=== PATIENT | female | born 1940 | race Caucasian/White ===

== ENCOUNTER → 2019-01-22 12:28 | Outpatient (CLI) | payer MEDICARE, OTHER, SELFPAY ==
--- NOTE | 2019-01-22 | DI.RAD.S_ITS ---
PROCEDURE: FL BARIUM SWALLOW INDICATIONS: Other dysphagia COMPARISON: None. FINDINGS: Function: There is decreased esophageal peristalsis. No elicited gastroesophageal reflux. There is normal transit of a calibrated barium tablet through the esophagus into the stomach. Morphology: Air-contrast images demonstrate normal mucosal morphology. Single contrast views show no esophageal strictures, extrinsic mass effects, or diverticula. Limited images of the stomach demonstrate normal appearance. IMPRESSION: Mild esophageal dysmotility. Dictated by: Edvin Quinonez M.D. on 01/22/2019 at 15:40 Approved by: Edvin Quinonez M.D. on 01/22/2019 at 15:42
== END ==
PROVIDERS: PCP Nurse Practitioner Primary Care; Visit Provider Otolaryngology
DX: R13.19 Other dysphagia (principal); K22.4 Dyskinesia of esophagus
CPT/HCPCS: 74220

== ENCOUNTER 2019-03-21 11:22 | Day surgery (SDC) | payer MEDICARE, OTHER, SELFPAY ==
--- NOTE | 2019-03-21 | PATH_ITS ---
[facility] Accession Number: [id number] . 01 Material submitted: . esophagus - ESOPHAGEAL BIOPSIES . 01 Clinical history: . EGD W/POSS BX . 02 Diagnosis: Esophagus, Biopsy: Columnar mucosa with no diagnostic abnormality. Negative for intestinal metaplasia. Negative for dysplasia and malignancy. [facility] 03/23/2019 1140 Local . 02 Electronically signed: . Laurence Segal MD, Pathologist NPI- [id number] . 01 Gross description: . ESOPHAGEAL BIOPSIES: Received in formalin are 2 fragment(s) of cabrera, soft tissue measuring 0.1 x 0.1 x 0.1 cm to 0.3 x 0.2 x 0.2 cm submitted entirely in 1 cassette(s) /[facility] 03/21/2019 2226 Local . 02 Microscopic: . An ABPAS stain was performed to evaulate for intestinal metaplasia and is negative. The control stain showed appropriate reactivity. . 02 Pathologist provided ICD-10: R13.14 . 02 CPT . 130210, [id number] Performed at: 01 [facility] [address], [place], [place] [id number] MD Jagdeep Zabala MD Phone: [phone] Performed at: 02 [facility] [address] [place], [place] [id number] MD Laurence Segal MD Phone: [phone]
--- NOTE | 2019-03-21 08:27 | PM.HP.1 ---
History of Present Illness History of Present Illness Date Patient Seen: 03/21/19 Chief complaint: [id number] EGD W/POSS BX Narrative: Patient is an 79-year-old female who presented today for EGD. She was last seen in the office on February 20, 2019 for sore throat and chronic cough. She also described esophageal dysphagia. She did have an esophagram on January 22, 2019 which did show some esophageal dysmotility with decreased esophageal peristalsis but no evidence of mass or lesion. Meds Home Medications and Allergies Home Medications Medication Instructions Recorded Confirmed Type Qvar 2 puff INH BID #0 06/23/16 03/21/19 History albuterol sulfate [Proventil HFA] 1 puff INH PRN PRN #0 06/23/16 03/21/19 History ascorbic acid (vitamin C) 1,000 mg PO BID #0 06/23/16 03/21/19 History calcium carbonate 600 mg PO BID #0 06/23/16 03/21/19 History cholecalciferol (vitamin D3) 1 tab PO BID #0 06/23/16 03/21/19 History [Vitamin D3] fluticasone propionate 2 spray INTRANASAL HS #0 06/23/16 03/21/19 History Refresh Tears 1 drp OPHTH TIDP PRN #0 06/28/16 03/21/19 History cyclosporine [Restasis] 1 drp OPHTHALMIC (EYE) BID 03/21/19 03/21/19 History Allergies Allergy/AdvReac Type Severity Reaction Status Date / Time No Known Drug Allergies Allergy Verified 03/21/19 12:15 Review of Systems Review of Systems ROS Unobtainable: All systems reviewed & are unremarkable except as noted in HPI and below Exam Const General: cooperative, healthy appearing, comfortable and well developed Orientation: alert, awake and oriented x3 Resp Effort & Inspection: normal respiratory effort and able to speak in complete sentences Auscultation: clear to auscultation bilaterally Cardio Rate: regular rate Rhythm: regular rhythm Heart Sounds: S1 normal and S2 normal GI Palpation: soft and No tender Auscultation: normal bowel sounds Extrem Right lower extremity: no edema Left lower extremity: no edema Assessment & Plan Assessment & Plan narrative: 1. Chronic cough 2. Esophageal dysphagia - abnormal esophagram, dysmotility - EGD today, further recommendations to follow
[2019-03-21 12:21] VITALS: BP 143/86; PULSE 108; RESP 15; TEMP 36; O2SAT 97; BMI 25.9
[2019-03-21] MEDS: SODIUM CHLORIDE 0.9% 1,000 ML 70 ML IV (12:46)
[2019-03-21] MEDS: LIDOCAINE 4% SOLN 50 ML 20 ML TOP (13:23)
[2019-03-21] MEDS: fentaNYL 250 MCG/5 ML INJ IV (13:37)
[2019-03-21] MEDS: MIDAZOLAM 5 MG/5 ML VIAL IV (13:37)
--- NOTE | 2019-03-21 13:39 | P.OP.ENDO_ITS ---
Operative Date/Time/Diagnoses Date of procedure: 03/21/19 Time of procedure: 13:27 Procedure Notes Procedure in detail: Surgeon: Ros Dodson DO Procedure: Esophagogastroduodenoscopy with biopsy Preoperative diagnosis: 1. Esophageal dysphagia 2. Abnormal esophagram with dysmotility 3. Chronic cough Postoperative diagnosis: 1. LA-D esophagitis in the lower esophagus -biopsied 2. Medium-sized hiatal hernia 3. Normal appearing gastric mucosa and duodenum Medications: Conscious sedation using 2 mg IV of Midazolam and 50 mcg IV of Fentanyl Preanesthesia Assessment An H and P was performed/updated and the Px?s ASA class is 2. The procedure was discussed in detail with the patient. The potential risks and complications including infection, bleeding, missed lesions, perforation, need for surgery in case of perforation, prolonged hospital stay, and were explained. A brief question and answer period was allotted and once all questions were answered, informed consent was obtained. The patient was brought back to the procedure room and placed on standard monitoring. The patient?s vital signs were monitored continuously throughout the entire procedure. Prior to starting, a timeout was performed to confirm the patient?s identity, allergies, medications, and procedure. Procedure in detail The patient was placed in left lateral decubitus position and a bite block was inserted. The tip of the upper endoscope was placed into the mouth and advanced without difficulty under direct visualization into the esophagus. Esophagus: LA-D esophagitis noted in the lower 3rd of the esophagus Mildly tortuous lower 3rd of the esophagus Stomach: Medium-sized hiatal hernia Otherwise unremarkable gastric mucosa Duodenum: Normal appearing small bowel mucosa The patient tolerated the procedure well and will be brought back to the [facility] to be discharged once criteria are met. The total physician intraservice time was 7min. Complications There were no complications and estimated blood loss was minimal. Recommendations: Resume previous diet Continue outPx medications Follow up pathology results Consider repeat EGD to assess for healing in 8-12 weeks Recommend omeprazole 20 mg twice daily for 8 weeks Continue Carafate to 4 times daily Office follow up in 6-8 weeks An emergency contact number was given to the patient for any complications related to the procedure
[2019-03-21 13:42] VITALS: BP 99/46; PULSE 77; RESP 17; TEMP 36.4; O2SAT 92
[2019-03-21 13:46] VITALS: BP 95/57; PULSE 81; RESP 18; O2SAT 92
[2019-03-21 13:57] VITALS: BP 111/69; PULSE 81; RESP 17; O2SAT 96
[2019-03-21 14:02] VITALS: BP 124/56; PULSE 87; RESP 19; TEMP 36.4; O2SAT 98
--- NOTE | 2019-03-21 14:13 | SUR.PHASEI ---
Post op endo PACU note: patient arrived to PACU awake but drowsy. VSS, O2 Sat 92. 2L/[employer] placed on arrival. Sitting up, tolerating po without nausea. occasional coughing when drank water. Coughing resolved. Stable for transfer to [facility]. handoff report given to Mata Savage RN
[2019-03-21 14:29] VITALS: BP 138/79; PULSE 86; RESP 15; TEMP 36.6; O2SAT 98
== END 2019-03-21 14:15 | disposition home or self-care (01) ==
PROVIDERS: PCP Nurse Practitioner Primary Care; Visit Provider Student in an Organized Health Care Education/Training Program
PROC: 0DJ08ZZ Inspection of Upper Intestinal Tract, Via Natural or Artificial Opening Endoscopic (ICD-10-PCS; CPT 43235; principal; 2019-03-21 12:30)
DX: K20.9 Esophagitis, unspecified (principal); K44.9 Diaphragmatic hernia without obstruction or gangrene
CPT/HCPCS: 43239; J2250; J3010

== ENCOUNTER → 2021-07-27 09:50 | Outpatient (CLI) | payer MEDICARE, OTHER, SELFPAY ==
[2021-07-27 11:15] LABS: Add Manual Diff / Slide Review NO; Basophils Absolute Auto 0 /uL (0-100); Eosinophils Absolute Auto 100 /uL (0-450); Eosinophils Percent Auto 2.3 % (2-4); Hematocrit 39.7 % (36-46); Hemoglobin 13.4 g/dL (12.0-16.0); Lymphocytes Absolute Auto 1000 /uL (1100-4500); Lymphocytes Percent Auto 24.6 % (25-40); Mean Corpuscular HGB Conc 33.8 % (30-36); Mean Corpuscular Hemoglobin 32.4 PG (26-34); Monocytes Absolute Auto 300 /uL (0-900); Monocytes Percent Auto 8.1 % (3-14); Neutrophils Absolute Auto 2500 /uL (1500-7000); Platelet Count 159 X10^3/uL (150-400); Red Blood Cell Count 4.13 X10^6/uL (4.0-5.2); Red Cell Distribution Width 14.1 % (11.6-14.8)
[2021-07-27 11:55] LABS: Creatine Kinase 63 U/L (30-135)
[2021-07-27 12:01] LABS: Alanine Aminotransferase 23 IU/L (<35); Albumin 4.4 g/dL (3.5-5.0); Albumin Globulin Ratio 1.6 (1.0-2.8); Alkaline Phosphatase 60 U/L (38-126); Aspartate Aminotransferase 29 IU/L (14-36); BUN Creatinine Ratio 19.7 (6-22); Blood Urea Nitrogen 13 mg/dL (7-17); Calcium 9.1 mg/dL (8.4-10.2); Carbon Dioxide 25 mmol/L (22-32); Chloride 103 mmol/L (98-107); Cholesterol 225 mg/dL (140-199); Estimated Glomerular Filt Rate > 60.0 mL/min (>60); Globulin 2.8 g/dL (1.7-4.1); Glucose 97 mg/dL (80-110); HDL Cholesterol 56 mg/dL (40-60); HEMOLYSIS < 15 (0-50); LDL Cholesterol Calculated 143 mg/dL (<100); Potassium 4.3 mmol/L (3.4-5.1); Sodium 134 mmol/L (137-145); Total Protein 7.2 g/dL (6.3-8.2); Triglycerides 129 mg/dL (35-150)
[2021-07-27 12:07] LABS: Troponin I < 0.012 ng/mL (0.01-0.034)
[2021-07-27 12:56] LABS: Free T3, Triiodothyronine Free 2.88 pg/mL (2.77-5.27); Free T4, Direct Thyroxine 1.56 ng/dL (0.78-2.19)
[2021-07-27 13:10] LABS: Thyroid Stimulating Hormone 1.67 uIU/mL (0.47-4.68)
== END ==
PROVIDERS: PCP Family Medicine; Referring Provider Family Medicine; Visit Provider Family Medicine
DX: I10 Essential (primary) hypertension (principal); I44.7 Left bundle-branch block, unspecified; R00.0 Tachycardia, unspecified; R94.31 Abnormal electrocardiogram [ECG] [EKG]; R53.83 Other fatigue; Z13.6 Encounter for screening for cardiovascular disorders
CPT/HCPCS: 36415; 80053; 80061; 82550; 84439; 84443; 84481; 84484; 85025

== ENCOUNTER → 2021-08-06 15:22 | Outpatient (CLI) | payer MEDICARE, OTHER, SELFPAY ==
--- NOTE | 2021-08-18 14:43 | PM.CARDMON.1 ---
Health Care Attorney Report Referral & Results Date Patient Seen: 08/06/21 Requesting provider: Reji Vega Indication: Hypertension Duration of monitoring (days): 7 Diary information: There are no patient events to review Data: Minimum heart rate identified was 52 beats per minute at 04:17 on 08/10/2021 Maximum sinus heart rate was 102 beats per minute at 19:23 on August 10, 2021 Maximum overall heart rate was 169 beats per minute at 23:13 on 08/08/2021 during a run of SVT Approximately 2.1% of identified beats were supraventricular ectopic in origin which would classify them as occasional Approximately 8.8% of identified beats were ventricular ectopic in origin which would classify them as frequent this included a 1 minute 19 second run of ventricular bigeminy and a 7 minute 55 second run of ventricular trigeminy There were 96 runs of SVT the fastest being 8 beat run at the above rate of 169 beats per minute, the longest lasting 22.8 seconds at a rate of 113 beats per minute which suggest possible atrial tachycardia rather than true SVT There were no pauses of 3.0 seconds or longer or episodes of atrial fibrillation identified on this study Impression: 7 day radiation monitor demonstrating occasional PACs frequent PVCs and rare very brief runs of SVT as above Clinical correlation suggested
== END ==
PROVIDERS: Family Provider Family Medicine; PCP Family Medicine; Referring Provider Family Medicine; Visit Provider Family Medicine
DX: I10 Essential (primary) hypertension (principal); I44.7 Left bundle-branch block, unspecified; R00.0 Tachycardia, unspecified; R94.31 Abnormal electrocardiogram [ECG] [EKG]
CPT/HCPCS: 93242; 93244

== ENCOUNTER → 2021-09-25 09:46 | Outpatient (CLI) | payer MEDICARE, OTHER, SELFPAY ==
--- NOTE | 2021-09-25 | DI.NM.S_ITS ---
PROCEDURE: NM SERG PERF SPECT R&S PHARM Rest and pharmacological stress myocardial perfusion SPECT with gated imaging and ejection fraction RADIOPHARMACEUTICAL: 11.4 mCi Tc-99m tetrafosmin IV at rest and 25.2 mCi Tc-99m tetrafosmin IV at peak effect of pharmacological stress. [id number] was performed. INDICATIONS: Abnormal electrocardiogram [ECG] [EKG] TECHNIQUE: Radiopharmaceutical was injected at peak stress test, and also at rest. SPECT images were obtained. SPECT myocardial perfusion images were displayed in short axis, horizontal long axis, and vertical long axis views. Gated images were reviewed using [email or web address] software. COMPARISON: None. CARDIAC STRESS: A pharmacologic stress test was performed under the supervision of an attending staff, using an infusion of regadenoson. Hemodynamic data: There is normal blood pressure and heart rate response to pharmacologic stress. Symptoms: The patient denied anginal chest pain. EKG: Sinus rhythm, IVCD, no diagnostic changes of ischemia; frequent PVCs. FINDINGS: Raw data: There is good myocardial uptake of radiotracer. No significant motion artifacts. Ftjn-mg-mehna ratio is 0.31 (normal is less than 0.38 for tetrafosmin tracer). Left ventricle function: Gated images demonstrate normal left ventricular wall thickening. No segmental wall motion abnormalities. No transient ischemic dilation; TID is 0.84 (normal less than 1.3). Left ventricle resting end diastolic volume is 163 mL. Left ventricle stress ejection fraction is 54%; normal range is above 45%. Myocardial perfusion: There is a medium size, mild intensity fixed distal anteroseptal and anteroapical wall defect which demonstrates slightly improvement but not complete resolution in the prone images. There is evidence of dyssynchrony in the left ventricle on gated imaging. IMPRESSION: Fixed distal anteroseptal and anteroapical wall defects demonstrate slight improvement but not complete resolution in prone imaging when compared to rest and supine imaging. Along with the dyssynchrony of the left ventricle, this abnormality is likely related to interventricular conduction delay rather than true ischemia however this cannot be completely ruled out. Dictated by: Apple Mayo D.O. on 09/25/2021 at 17:19 Approved by: Apple Mayo D.O. on 09/25/2021 at 17:25
--- NOTE | 2021-09-25 15:29 | PM.TREADMILL ---
Cardiac Stress Test Report Referral & Results Date Patient Seen: 09/25/21 Time Patient Seen: 15:29 Requesting provider: Apple Mayo Indication: Abnormal ECG Rest ECG: Sinus rhythm with bigeminy and intraventricular conduction delay Procedure Note: After Lexiscan injection had minimal dyspnea, no chest discomfort No significant ST changes after Lexiscan injection Impression: Normal Lexiscan stress test Nuclear images pending Please note: Actual ECG tracings can be found in the PACS system.
== END ==
PROVIDERS: Family Provider Family Medicine; PCP Family Medicine; Referring Provider Internal Medicine Cardiovascular Disease; Visit Provider Internal Medicine Cardiovascular Disease
DX: R94.31 Abnormal electrocardiogram [ECG] [EKG] (principal)
CPT/HCPCS: 78452; 93017; A9502; J2785

== ENCOUNTER → 2021-10-20 15:36 | Outpatient (CLI) | payer MEDICARE, OTHER, SELFPAY ==
--- NOTE | 2021-10-20 | DI.MRI.S_ITS ---
PROCEDURE: MR HEAD/BRAIN WO/W CON INDICATIONS: Other localized visual field defect, - ORBIT PROTOCOL TECHNIQUE: Noncontrast axial T1 spin echo, axial T2 fast spin echo, sagittal and axial FLAIR, coronal T2 fast spin echo, axial gradient echo, axial diffusion and ADC through the brain and thin section, high-resolution coronal STIR and axial T1 with fat sat images obtained through the orbits. After the administration of contrast, axial and coronal and sagittal 3D VIBE or T1 spin echo with fat saturation through the brain and thin section, high-resolution axial and coronal T1 images with fat sat obtained through the orbits.. COMPARISON: None. FINDINGS: Image quality: Excellent. CSF Spaces: Basal cisterns are patent. No extra-axial fluid collections. Ventricles are normal in size and shape. Brain: No midline shift. No intracranial bleeds or masses. No abnormal intracranial enhancement. There is mild, diffuse cerebral volume loss. There are minimal periventricular and subcortical white matter chronic microvascular ischemic changes. The brainstem appears normal. Diffusion-weighted images demonstrate no acute ischemic insults. Small chronic infarct noted in the medial aspect of the right occipital lobe.. Normal intravascular flow voids are present. Skull and face: Calvarial marrow is normal in signal. Postsurgical changes noted in the left globe. The left globe is atrophied. Postsurgical changes compatible prior cataract surgery noted in the right globe. Right globe otherwise has a normal appearance. Left optic nerve is atrophy. Right optic nerve is normal in appearance. Bilateral extraocular muscles are normal. Sinuses: Sinuses and mastoids appear clear. IMPRESSION: 1. No acute intracranial disease process. 2. No areas of acute infarction. Small chronic right occipital lobe infarct is noted. 3. Postsurgical changes noted in the left eye with atrophy of the left optic nerve. Please correlate with clinical findings and clinical history. 4. Mild, diffuse cerebral volume loss. 5. Minimal periventricular and subcortical white matter chronic microvascular ischemic change. Dictated by: Emily Mccormick MD, PhD on 10/21/2021 at 17:39 Approved by: Emily Mccormick MD, PhD on 10/21/2021 at 17:45
== END ==
PROVIDERS: Family Provider Family Medicine; PCP Family Medicine; Referring Provider Ophthalmology; Visit Provider Ophthalmology
DX: H53.451 Other localized visual field defect, right eye (principal); I63.89 Other cerebral infarction
CPT/HCPCS: 70553; A9579

== ENCOUNTER → 2022-01-18 15:52 | Outpatient (CLI) | payer MEDICARE, OTHER, SELFPAY ==
--- NOTE | 2022-01-18 15:53 | DI.ECHO.S_ITS ---
[facility]---------+ [facility] +---------+ : : [address] [place] [address] : : : : [id number] : : : : Phone: [phone]---------+ Echocardiogram Report + + :Name: REE BOSCH Study Date: 01/18/2022 Height: 62 in : :[facility] ReadingLocation: Weight: 140 lb : : Gender: Female BSA: 1.6 m2 : :: 1940 Age: 81 yrs BP: 145/71 mmHg: :Reason For Study: Congestive Heart Failure : :Ordering Physician: CLOTILDE, : :NAOMI Performed By: Conrad Elkins : :Referring: NAOMI MABRY : + + Interpretation Summary There is mild concentric left ventricular hypertrophy. The ejection fraction is estimated to be 25-30%. There is severe global hypokinesis of the left ventricle. Diastolic function could not be accurately assessed due to unobtainable data. The right ventricle is normal in size and function. There is mild mitral regurgitation. There is mild aortic regurgitation. There is mild tricuspid regurgitation. The right ventricular systolic pressure is estimated to be at least 19 mmHg based on an estimated right atrial pressure of 3 mm Hg. Procedure: A two-dimensional transthoracic echocardiogram with color flow and Doppler was performed. The study quality was technically adequate. There is no prior echocardiogram noted for this patient. The patient had frequent PVCs during the exam. Left Ventricle: The left ventricle is normal in size. There is mild concentric left ventricular hypertrophy. Left ventricular systolic function is severely reduced. The ejection fraction is estimated to be 25-30%. There is severe global hypokinesis of the left ventricle. Diastolic function could not be accurately assessed due to unobtainable data. Right Ventricle: The right ventricle is normal in size and function. Atria: Both atria are normal in size. The interatrial septum grossly appears intact with no obvious evidence for an atrial septal defect. Mitral Valve: There is mild mitral annular calcification. There is mild mitral regurgitation. Aortic Valve: There is mild aortic valve sclerosis. There is no aortic valve stenosis. There is mild aortic regurgitation. Tricuspid Valve: The tricuspid valve is normal in structure and function. There is mild tricuspid regurgitation. The right ventricular systolic pressure is estimated to be at least 19 mmHg based on an estimated right atrial pressure of 3 mm Hg. Pulmonic Valve: The pulmonic valve is not well seen, but is grossly normal. There is no pulmonic valvular regurgitation. Great Vessels: The aortic root is normal size. The ascending aorta could not be visualized. The IVC is of normal diameter and collapses greater than 50% with a sniff. This suggests a low right atrial pressure of 3 mm Hg. Pericardium/ Pleura There is no pericardial effusion. There is no pleural effusion. MMode/2D Measurements & Calculations LVIDd: 5.4 cm LVOT diam: 1.8 cm LVIDs: 4.7 cm Ao root diam: 3.6 cm FS: 13.0 % IVSd: 1.4 cm LVPWd: 1.2 cm LV gallegos. diameter/BSA (cm/m^2): 3.3 LV sys. diameter/BSA (cm/m^2): 2.9 LA dimension: 3.1 cm RA long axis: 4.9 cm LA A2 area: 15.2 cm2 LA A4 area: 13.0 cm2 LA length (vol): 5.0 cm LA vol: 33.5 ml LA vol index: 20.4 ml/m2 LVLs ap4: 7.7 cm LVLd ap2: 7.9 cm LVLs ap2: 7.7 cm TAPSE_phl: 2.0 cm Doppler Measurements & Calculations Ao V2 max: 112.0 cm/sec LVOT Max Christian: 102.0 cm/sec Ao V2 mean: 81.2 cm/sec LV V1 max P.2 mmHg Ao max P.0 mmHg LV V1 VTI: 18.7 cm Ao mean P.0 mmHg JASON(I,D): 2.5 cm2 Ao V2 VTI: 18.8 cm JASON(V,D): 2.3 cm2 sev ratio: 0.99 JASNO indexed to BSA (cm^2/m^2): 1.5 TR max christian: 199.0 cm/sec SV(LVOT): 47.6 ml TR max P.8 mmHg AV VR_phl: 0.91 JASON(VTI)/BSA_phl: 1.5 Reading Physician:11:45 AM
== END ==
PROVIDERS: Family Provider Family Medicine; PCP Family Medicine; Referring Provider Internal Medicine Cardiovascular Disease; Visit Provider Internal Medicine Cardiovascular Disease
DX: I08.3 Combined rheumatic disorders of mitral, aortic and tricuspid valves (principal); I50.22 Chronic systolic (congestive) heart failure; I44.7 Left bundle-branch block, unspecified; R00.0 Tachycardia, unspecified; R94.31 Abnormal electrocardiogram [ECG] [EKG]
CPT/HCPCS: 93306

== ENCOUNTER 2022-02-18 12:03 | Emergency (ER) | payer MEDICARE, OTHER, SELFPAY ==
[2022-02-18] VITALS (10 sets, daily range): BP systolic 126–139; BP diastolic 63–70; PULSE 66–83; RESP 18–32; TEMP 36.9; O2SAT 96–98; BMI 25.2
--- NOTE | 2022-02-18 12:34 | DI.RAD.S_ITS ---
PROCEDURE: XR CHEST 2V INDICATIONS: SOB TECHNIQUE: 2 views of the chest were acquired. COMPARISON: None. FINDINGS: Surgical changes and devices: Bilateral shoulder arthroplasties. Lungs and pleura: Lungs are clear. No pleural effusions or pneumothorax. Mediastinum: Mediastinal contours are normal. Heart size is normal. Bones and chest wall: No suspicious bony abnormalities. Suspect T7 compression fracture. Scoliosis. Soft tissues appear unremarkable. Arterial vascular calcifications. IMPRESSION: No acute cardiopulmonary abnormality. Suspect T7 compression fracture. Dictated by: Johnathan Palmer M.D. on 02/18/2022 at 12:32 Approved by: Johnathan Palmer M.D. on 02/18/2022 at 12:35
--- NOTE | 2022-02-18 12:36 | ED_ITS ---
HPI - SOB/Dyspnea <Ephraim Santos PA-C - Last Filed: 02/18/22 18:47> General Chief Complaint: Shortness of Breath/Dyspnea Stated Complaint: Low BP that serena to high Time Seen by Provider: 02/18/22 12:18 Source: patient Mode of arrival: Ambulatory Limitations: no limitations History of Present Illness HPI Narrative: This is a 1-year-old female with a history of CHF presenting to the emergency department due to reported varying blood pressure readings on her home blood pressure cuff. She states that she initially took it with it being ?80 over something? which then increased to ?90 over something? and then eventually increasing to the ?100s?. Patient did not report any new concerning symptoms such as lightheadedness, dizziness, chest pain, or changes in vision. She did state that she was short of breath but states that she is chronic shortness of breath secondary to congestive heart failure. Patient is working with her primary care doctor and health technician to workup this. She denies any fevers, nausea, vomiting, or any other concerning signs or symptoms. States she is still able to take in fluids, but has not eaten a lot?. Related Data Home Medications Medication Instructions Recorded Confirmed ascorbic acid (vitamin C) 500 mg 1,000 mg PO BID ##0 06/23/16 02/18/22 tablet calcium carbonate 600 mg calcium 600 mg PO BID ##0 06/23/16 02/18/22 (1,500 mg) tablet cholecalciferol (vitamin D3) 50 1 tab PO BID ##0 06/23/16 02/18/22 mcg (2,000 unit) capsule (Vitamin D3) fluticasone propionate 50 2 spray intranasal HS ##0 06/23/16 02/18/22 mcg/actuation nasal spray,suspension carboxymethylcellulose sodium 0.5 1 drp OPHTH TIDP PRN Dry Eye(S) ##0 06/28/16 02/18/22 % eye drops (Refresh Tears) cyclosporine 0.05 % eye drops in a 1 drp ophthalmic (eye) BID 03/21/19 02/18/22 dropperette (Restasis) omega 3-tip-hfq-fish oil 1,000 mg 1 cap PO DAILY 07/23/21 02/18/22 (120 mg-180 mg) capsule (Fish Oil) spironolactone 25 mg tablet 12.5 mg PO DAILY 02/05/22 02/18/22 Previous Rx's Medication Instructions Recorded albuterol sulfate 90 mcg/actuation 1 puff inhalation PRN PRN 03/27/20 aerosol inhaler (Proventil HFA) Shortness Of Breath #6.7 grams metoprolol succinate 25 mg 25 mg PO DAILY #30 tabs 07/23/21 tablet,extended release 24 hr atorvastatin 10 mg tablet 10 mg PO BEDTIME #90 tabs 07/27/21 fluticasone 500 mcg-salmeterol 50 See Rx Instructions .Route 02/09/22 mcg/dose blistr powdr for .COMPLEX #60 blisters inhalation codeine 10 mg-guaifenesin 200 mg/5 10 ml PO Q4-6H PRN cough #473 mL 02/19/22 mL oral liquid Allergies Allergy/AdvReac Type Severity Reaction Status Date / Time No Known Drug Allergies Allergy Verified 02/18/22 12:19 Review of Systems <Ephraim Santos PA-C - Last Filed: 02/18/22 18:47> Review of Systems Narrative: GENERAL: Denies chills, fatigue, malaise, fever, sweats. HEENT: Denies sinus pain, ear pain, sore throat, difficulty swallowing, dizziness. RESPIRATORY: Denies dyspnea, cough, wheezing, hemoptysis, sputum. CARDIOVASCULAR: Denies chest pain, palpitations, orthopnea, edema, GASTROINTESTINAL: Denies nausea, vomiting, abdominal pain, diarrhea, constipation, melena. : Denies dysuria, frequency, incontinence, hematuria, urinary retention. MUSCULOSKELETAL: denies weakness, joint pain, or bony pain SKIN: Denies rash, skin lesions, or other NEUROLOGIC: Denies weakness, headache, numbness, change in speech, confusion, seizures, incoordination. PSYCHIATRIC: No concerning psychosocial issues. 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 Chronic cough Chronic right hip pain Dysphagia Food sticks on swallowing HTN (hypertension) LBBB (left bundle branch block) Left axis deviation Left low back pain Lumbar region somatic dysfunction Measles (~194) Memory problem Mumps Partial blindness (~1994) Pelvic somatic dysfunction Retinal detachment (~1994) Sacral region somatic dysfunction Segmental and somatic dysfunction of abdomen and other regions Somatic dysfunction of abdominal region 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, NYHA class 2 Tachycardia Weight loss counseling, encounter for Surgical History (Updated 05/27/20 @ 20:34 by Rashida Chappell) History of appendectomy History of carpal tunnel surgery S/p reverse total shoulder arthroplasty Family History (Updated 03/27/20 @ 11:17 by Shahab Vega DO) Mother Cancer Father Cancer Social History household members: other Smoking Status: Never smoker alcohol intake: current (rarely) substance use type: does not use Smoking Status: Never smoker alcohol intake frequency: 0-2 drinks per day Substance Use Type: does not use Exam <Ephraim Santos PA-C - Last Filed: 02/18/22 18:47> Narrative Exam Narrative: GENERAL: Well-developed patient, in mild distress. HEAD: Atraumatic. Normocephalic. EYES: Pupils equal round and reactive. Extraocular motions intact. No scleral icterus. No injection or drainage. ENT: Nose without bleeding, purulent drainage. Throat without erythema, tonsillar hypertrophy or exudate. Airway patent. NECK: Trachea midline. Non tender CARDIOVASCULAR: Regular rate and rhythm without murmurs, gallops, or rubs. RESPIRATORY: Clear to auscultation. Breath sounds equal bilaterally. No wheezes, rales, or rhonchi. GASTROINTESTINAL: Abdomen soft, non-tender, nondistended. EXTREMITIES: No edema or joint tenderness. BACK: Nontender without deformity or crepitance. No flank tenderness. NEURO: AOx3. SKIN: No rash or erythema of visible areas Initial Vital Signs Initial Vital Signs: Vital Signs Pulse Rate 80 02/18/22 12:11 Pulse Oximetry 97 02/18/22 12:11 <Thien Lundy DO - Last Filed: 02/21/22 02:32> Initial Vital Signs Initial Vital Signs: Vital Signs Pulse Rate 80 02/18/22 12:11 Pulse Oximetry 97 02/18/22 12:11 Course <Ephraim Santos PA-C - Last Filed: 02/18/22 18:47> Orders Ordered: ED Orders 02/18/22 12:17 EKG-12 Lead Routine 02/18/22 12:34 XR chest 2V Stat 02/18/22 13:51 Complete Blood Count AUTO DIFF Stat Comprehensive Metabolic Panel Stat NT-proBNP (BNP-Adult 18+) Stat Troponin & CK Cardiac Panel Stat Vital Signs Vital signs: Vital Signs - 8 hr 02/18/22 12:16 02/18/22 12:57 02/18/22 12:11 Temperature 98.5 F Pulse Rate 66 80 Pulse Rate [Orthostatic Lying] 71 Pulse Rate [Orthostatic Sitting] 74 Pulse Rate [Orthostatic Standing] 74 Respiratory Rate 18 Blood Pressure 134/66 Blood Pressure [Orthostatic Lying] 137/69 Blood Pressure [Orthostatic Sitting] 130/63 Blood Pressure [Orthostatic Standing] 126/70 Pulse Oximetry 97 97 Oxygen Delivery Method Room Air 02/18/22 12:12 02/18/22 12:16 02/18/22 12:16 Temperature Pulse Rate 71 69 Pulse Rate [Orthostatic Lying] Pulse Rate [Orthostatic Sitting] Pulse Rate [Orthostatic Standing] Respiratory Rate 25 H 32 H Blood Pressure 134/66 Blood Pressure [Orthostatic Lying] Blood Pressure [Orthostatic Sitting] Blood Pressure [Orthostatic Standing] Pulse Oximetry 97 97 Oxygen Delivery Method 02/18/22 12:30 02/18/22 12:38 02/18/22 12:38 Temperature Pulse Rate 69 68 Pulse Rate [Orthostatic Lying] Pulse Rate [Orthostatic Sitting] Pulse Rate [Orthostatic Standing] Respiratory Rate 26 H 19 Blood Pressure 137/69 Blood Pressure [Orthostatic Lying] Blood Pressure [Orthostatic Sitting] Blood Pressure [Orthostatic Standing] Pulse Oximetry 96 96 Oxygen Delivery Method 02/18/22 12:40 02/18/22 12:40 02/18/22 12:41 Temperature Pulse Rate 75 Pulse Rate [Orthostatic Lying] Pulse Rate [Orthostatic Sitting] Pulse Rate [Orthostatic Standing] Respiratory Rate 24 Blood Pressure 130/63 126/70 Blood Pressure [Orthostatic Lying] Blood Pressure [Orthostatic Sitting] Blood Pressure [Orthostatic Standing] Pulse Oximetry 96 Oxygen Delivery Method 02/18/22 12:41 02/18/22 13:08 02/18/22 14:33 Temperature Pulse Rate 80 83 71 Pulse Rate [Orthostatic Lying] Pulse Rate [Orthostatic Sitting] Pulse Rate [Orthostatic Standing] Respiratory Rate 25 H 18 Blood Pressure 139/69 Blood Pressure [Orthostatic Lying] Blood Pressure [Orthostatic Sitting] Blood Pressure [Orthostatic Standing] Pulse Oximetry 96 98 Oxygen Delivery Method Room Air <Thien Balderramaan, DO - Last Filed: 02/21/22 02:32> Orders Ordered: ED Orders 02/18/22 12:17 EKG-12 Lead Routine 02/18/22 12:34 XR chest 2V Stat 02/18/22 13:51 Complete Blood Count AUTO DIFF Stat Comprehensive Metabolic Panel Stat NT-proBNP (BNP-Adult 18+) Stat Troponin & CK Cardiac Panel Stat Vital Signs Vital signs: Vital Signs - 8 hr 02/18/22 12:16 02/18/22 12:57 02/18/22 12:11 Temperature 98.5 F Pulse Rate 66 80 Pulse Rate [Orthostatic Lying] 71 Pulse Rate [Orthostatic Sitting] 74 Pulse Rate [Orthostatic Standing] 74 Respiratory Rate 18 Blood Pressure 134/66 Blood Pressure [Orthostatic Lying] 137/69 Blood Pressure [Orthostatic Sitting] 130/63 Blood Pressure [Orthostatic Standing] 126/70 Pulse Oximetry 97 97 Oxygen Delivery Method Room Air 02/18/22 12:12 02/18/22 12:16 02/18/22 12:16 Temperature Pulse Rate 71 69 Pulse Rate [Orthostatic Lying] Pulse Rate [Orthostatic Sitting] Pulse Rate [Orthostatic Standing] Respiratory Rate 25 H 32 H Blood Pressure 134/66 Blood Pressure [Orthostatic Lying] Blood Pressure [Orthostatic Sitting] Blood Pressure [Orthostatic Standing] Pulse Oximetry 97 97 Oxygen Delivery Method 02/18/22 12:30 02/18/22 12:38 02/18/22 12:38 Temperature Pulse Rate 69 68 Pulse Rate [Orthostatic Lying] Pulse Rate [Orthostatic Sitting] Pulse Rate [Orthostatic Standing] Respiratory Rate 26 H 19 Blood Pressure 137/69 Blood Pressure [Orthostatic Lying] Blood Pressure [Orthostatic Sitting] Blood Pressure [Orthostatic Standing] Pulse Oximetry 96 96 Oxygen Delivery Method 02/18/22 12:40 02/18/22 12:40 02/18/22 12:41 Temperature Pulse Rate 75 Pulse Rate [Orthostatic Lying] Pulse Rate [Orthostatic Sitting] Pulse Rate [Orthostatic Standing] Respiratory Rate 24 Blood Pressure 130/63 126/70 Blood Pressure [Orthostatic Lying] Blood Pressure [Orthostatic Sitting] Blood Pressure [Orthostatic Standing] Pulse Oximetry 96 Oxygen Delivery Method 02/18/22 12:41 02/18/22 13:08 02/18/22 14:33 Temperature Pulse Rate 80 83 71 Pulse Rate [Orthostatic Lying] Pulse Rate [Orthostatic Sitting] Pulse Rate [Orthostatic Standing] Respiratory Rate 25 H 18 Blood Pressure 139/69 Blood Pressure [Orthostatic Lying] Blood Pressure [Orthostatic Sitting] Blood Pressure [Orthostatic Standing] Pulse Oximetry 96 98 Oxygen Delivery Method Room Air MDM - SOB/Dyspnea <Ephraim Santos PA-C - Last Filed: 02/18/22 18:47> Medical Records Medical records narrative: On record review patient last had a TTE last month with scheduled cardiology wh ich showed an ejection fraction of 25-30%. Was seen by cardiology last month and recommended to follow up in 3 months. Lab Data Result diagrams: 02/18/22 13:51 02/18/22 13:51 Labs: Lab Results 02/18/22 02/18/22 02/18/22 Range/Units 13:51 13:51 13:51 WBC 4.4 L (4.5-11.0) X10^3/uL RBC 3.82 L (4.0-5.2) X10^6/uL Hgb 12.6 (12.0-16.0) g/dL Hct 37.5 (36-46) % MCV 98.0 (80-100) fL MCH 32.9 (26-34) PG MCHC 33.6 (30-36) % RDW 14.2 (11.6-14.8) % Plt Count 180 (150-400) X10^3/uL Neut % (Auto) 70.0 (50-75) % Lymph % (Auto) 14.9 L (25-40) % Cherokee % (Auto) 9.6 (3-14) % Eos % (Auto) 4.4 H (2-4) % Baso % (Auto) 1.1 (0-2) % Neut # (Auto) 3100 (9444-9340) /uL Lymph # (Auto) 700 L (5669-0966) /uL [place] # (Auto) 400 (0-900) /uL Eos # (Auto) 200 (0-450) /uL Baso # (Auto) 0 (0-100) /uL Sodium 132 L (137-145) mmol/L Potassium 4.5 (3.4-5.1) mmol/L Chloride 100 (98-107) mmol/L Carbon Dioxide 25 (22-32) mmol/L BUN 11 (7-17) mg/dL Creatinine 0.69 (0.52-1.04) mg/dL Estimated GFR > 60 (>60) mL/min BUN/Creatinine Ratio 15.9 (6-22) Glucose 96 (80-110) mg/dL Calcium 8.9 (8.4-10.2) mg/dL Total Bilirubin 1.4 H (0.2-1.3) mg/dL AST 144 H (14-36) IU/L ALT 153 H (<35) IU/L Alkaline Phosphatase 245 H (38-126) U/L Total Creatine Kinase 54 (30-135) U/L CK-MB (CK-2) TNP CK-MB (CK-2) Rel Index TNP Troponin I 0.016 (0.01-0.034) ng/mL NT-Pro-B Natriuret Pep 4420 H (<450) pg/mL Total Protein 7.1 (6.3-8.2) g/dL Albumin 4.0 (3.5-5.0) g/dL Globulin 3.1 (1.7-4.1) g/dL Albumin/Globulin Ratio 1.3 (1.0-2.8) Imaging Data Chest x-ray: Radiologist's Impression: [address] [address] XRay Report Signed Patient: Wendy Mullen MR#: [id number] : 1940 Acct:[id number] Age/Sex: 81 / F Date of Service: 02/18/22 Loc: ED Accession Number: [id number] ?? Procedure: XR chest 2V Ordering Provider: Ephraim Santos P.A-C PROCEDURE:? XR CHEST 2V ? INDICATIONS:? SOB ? TECHNIQUE:? 2 views of the chest were acquired.? ? COMPARISON:? None. ? FINDINGS:? ? Surgical changes and devices:? Bilateral shoulder arthroplasties. ? Lungs and pleura:? Lungs are clear.? No pleural effusions or pneumothorax.? ? Mediastinum:? Mediastinal contours are normal.? Heart size is normal.? ? Bones and chest wall:? No suspicious bony abnormalities.? Suspect T7 compression fracture.? Scoliosis.? Soft tissues appear unremarkable.? Arterial vascular calcifications.? ? IMPRESSION:? No acute cardiopulmonary abnormality. ? Suspect T7 compression fracture. ? ? ? Dictated by: Johnathan Palmer M.D. on 02/18/2022 at 12:32 ? ? Approved by: Johnathan Palmer M.D. on 02/18/2022 at 12:35 ? ECG Data Interpretation: EKG is normal sinus rhythm rate 67 and free of any signs of ischemia or ectopy. Evidence of left bundle-branch block as well as occasional PVCs MDM Narrative Medical decision making narrative: This is a 81-year-old female with a chronic history of congestive heart failure presents to the emergency department due to reported decreased blood pressure readings as noted on her home BP cuff. Patient was asymptomatic through these reported low blood pressure readings. Throughout the entirety of the encounter here in the emergency department the patient had blood pressure readings within normal limits. Orthostatic negative. Patient's lab work was unremarkable. Troponin within normal limits. Chest x-ray unremarkable care EKG showed evidence of left bundle branch block which is chronic for the patient. She hes itant established health technician with just seen last month with instructions to follow-up 2 months from now which I recommended she continue to do. Also recommended follow up with primary care provider for further monitoring of her blood pressure. She did not present with any physical symptoms such as chest pain, new shortness of breath, or any other concerning symptoms. <Thien Lundy, - Last Filed: 02/21/22 02:32> Lab Data Labs: Lab Results 02/18/22 02/18/22 02/18/22 Range/Units 13:51 13:51 13:51 WBC 4.4 L (4.5-11.0) X10^3/uL RBC 3.82 L (4.0-5.2) X10^6/uL Hgb 12.6 (12.0-16.0) g/dL Hct 37.5 (36-46) % MCV 98.0 (80-100) fL MCH 32.9 (26-34) PG MCHC 33.6 (30-36) % RDW 14.2 (11.6-14.8) % Plt Count 180 (150-400) X10^3/uL Neut % (Auto) 70.0 (50-75) % Lymph % (Auto) 14.9 L (25-40) % Cherokee % (Auto) 9.6 (3-14) % Eos % (Auto) 4.4 H (2-4) % Baso % (Auto) 1.1 (0-2) % Neut # (Auto) 3100 (3395-2849) /uL Lymph # (Auto) 700 L (5702-7426) /uL Cherokee # (Auto) 400 (0-900) /uL Eos # (Auto) 200 (0-450) /uL Baso # (Auto) 0 (0-100) /uL Sodium 132 L (137-145) mmol/L Potassium 4.5 (3.4-5.1) mmol/L Chloride 100 (98-107) mmol/L Carbon Dioxide 25 (22-32) mmol/L BUN 11 (7-17) mg/dL Creatinine 0.69 (0.52-1.04) mg/dL Estimated GFR > 60 (>60) mL/min BUN/Creatinine Ratio 15.9 (6-22) Glucose 96 (80-110) mg/dL Calcium 8.9 (8.4-10.2) mg/dL Total Bilirubin 1.4 H (0.2-1.3) mg/dL AST 144 H (14-36) IU/L ALT 153 H (<35) IU/L Alkaline Phosphatase 245 H (38-126) U/L Total Creatine Kinase 54 (30-135) U/L CK-MB (CK-2) TNP CK-MB (CK-2) Rel Index TNP Troponin I 0.016 (0.01-0.034) ng/mL NT-Pro-B Natriuret Pep 4420 H (<450) pg/mL Total Protein 7.1 (6.3-8.2) g/dL Albumin 4.0 (3.5-5.0) g/dL Globulin 3.1 (1.7-4.1) g/dL Albumin/Globulin Ratio 1.3 (1.0-2.8) Discharge Plan Departure Patient Disposition: Home Clinical Impression: Abnormal blood pressure Activity Restrictions/Additional Instructions: Thank you for coming to the [facility] Emergency Department today. The EKG showed no new findings. Please continue seeing a health technician as scheduled on planned for further follow-up on your chronic heart condition. The lab work was not concerning for any acute life-threatening processes. The chest x-ray was unremarkable. Through repeat blood pressure checks in different positions your blood pressure was within normal limits. I recommend you continue to drink plenty of fluids and follow up with the primary care provider for further follow-up on your reported varying blood pressure readings. I hope you feel better soon. Prescriptions: No Action fluticasone propionate 16 GM spray,suspension 2 spray Intranasal HS Qty: 0 calcium carbonate 600 MG tablet 600 mg PO BID Qty: 0 ascorbic acid (vitamin C) 500 MG tablet 1,000 mg PO BID Qty: 0 cholecalciferol (vitamin D3) [Vitamin D3] 2,000 UNIT capsule 1 tab PO BID Qty: 0 Refresh Tears 15 ML drops 1 drp OPHTH TIDP PRN (Reason: Dry Eye(S)) Qty: 0 atorvastatin 10 mg tablet 10 mg PO BEDTIME Qty: 90 3RF fluticasone propion-salmeterol 500-50 mcg/dose blister with device See Rx Instructions .ROUTE .COMPLEX Qty: 60 0RF Dose Instruction: inhale 1 puff by mouth and INTO THE LUNGS twice a day Rx Instructions: inhale 1 puff by mouth and INTO THE LUNGS twice a day codeine-guaifenesin 10-200 mg/5 mL liquid 10 ml PO Q4-6H PRN (Reason: cough) Qty: 473 0RF spironolactone 25 mg tablet 12.5 mg PO DAILY albuterol sulfate [Proventil HFA] 90 mcg/actuation HFA aerosol inhaler 1 puff inhalation PRN PRN (Reason: Shortness Of Breath) Qty: 6.7 5RF omega 4-ypz-jwx-fish oil [Fish Oil] 1,000 mg (120 mg-180 mg) capsule 1 cap PO DAILY metoprolol succinate 25 mg tablet extended release 24 hr 25 mg PO DAILY Qty: 30 5RF Restasis 0.05 % Dropperette 1 drp OPHTHALMIC (EYE) BID Referrals: Shahab Vega DO [Primary Care Provider] - Visit Report Forms: Patient Portal/API <Thien Lundy DO - Last Filed: 02/21/22 02:32> Cosign ED Attending Cosignature Attestation: I was immediately available in the department for consultation. This documentation has been reviewed and I agree with assessment and plan. Supervised by Thien Lundy, DO
--- NOTE | 2022-02-18 12:56 | PC.NURSE ---
butterfly draw unsuccessful x2. Lab called
[2022-02-18 14:01] LABS: Add Manual Diff / Slide Review NO; Basophils Absolute Auto 0 /uL (0-100); Basophils Percent Auto 1.1 % (0-2); Eosinophils Absolute Auto 200 /uL (0-450); Eosinophils Percent Auto 4.4 % (2-4); Hematocrit 37.5 % (36-46); Hemoglobin 12.6 g/dL (12.0-16.0); Lymphocytes Absolute Auto 700 /uL (1100-4500); Lymphocytes Percent Auto 14.9 % (25-40); Mean Corpuscular HGB Conc 33.6 % (30-36); Mean Corpuscular Hemoglobin 32.9 PG (26-34); Monocytes Absolute Auto 400 /uL (0-900); Monocytes Percent Auto 9.6 % (3-14); Neutrophils Absolute Auto 3100 /uL (1500-7000); Platelet Count 180 X10^3/uL (150-400); Red Blood Cell Count 3.82 X10^6/uL (4.0-5.2); Red Cell Distribution Width 14.2 % (11.6-14.8); White Blood Cell Count 4.4 X10^3/uL (4.5-11.0)
[2022-02-18 14:15] LABS: Alanine Aminotransferase 153 IU/L (<35); Albumin Globulin Ratio 1.3 (1.0-2.8); Alkaline Phosphatase 245 U/L (38-126); Aspartate Aminotransferase 144 IU/L (14-36); BUN Creatinine Ratio 15.9 (6-22); Bilirubin Total 1.4 mg/dL (0.2-1.3); Blood Urea Nitrogen 11 mg/dL (7-17); Calcium 8.9 mg/dL (8.4-10.2); Carbon Dioxide 25 mmol/L (22-32); Chloride 100 mmol/L (98-107); Creatine Kinase 54 U/L (30-135); Estimated Glomerular Filt Rate > 60 mL/min (>60); Globulin 3.1 g/dL (1.7-4.1); Glucose 96 mg/dL (80-110); HEMOLYSIS 16 (0-50); Potassium 4.5 mmol/L (3.4-5.1); Sodium 132 mmol/L (137-145); Total Protein 7.1 g/dL (6.3-8.2)
[2022-02-18 14:24] LABS: NT-proBNP (BNP-Adult 18+) 4420 pg/mL (<450)
[2022-02-18 14:27] LABS: Troponin I 0.016 ng/mL (0.01-0.034)
== END 2022-02-18 14:35 | disposition home or self-care (01) ==
PROVIDERS: Emergency Provider Physician Assistant Medical; Family Provider Family Medicine; PCP Family Medicine
DX: R03.1 Nonspecific low blood-pressure reading (principal); R06.02 Shortness of breath; R79.89 Other specified abnormal findings of blood chemistry
CPT/HCPCS: 36415; 71046; 80053; 82550; 83880; 84484; 85025; 93005; 99284

== ENCOUNTER → 2022-04-20 14:50 | Outpatient (CLI) | payer MEDICARE, OTHER, SELFPAY ==
[2022-04-20 17:59] LABS: COVID19 -Nasal RAPID Negative (Negative)
== END ==
PROVIDERS: Family Provider Family Medicine; PCP Family Medicine; Visit Provider Surgery
DX: Z20.822 Contact with and (suspected) exposure to COVID-19 (principal); Z01.812 Encounter for preprocedural laboratory examination
CPT/HCPCS: 87635; C9803

== ENCOUNTER 2022-04-21 08:58 | Day surgery (SDC) | payer MEDICARE, OTHER, SELFPAY ==
[2022-04-21] VITALS (12 sets, daily range): BP systolic 59–129; BP diastolic 32–79; PULSE 59–78; RESP 13–146; TEMP 36.2–36.3; O2SAT 92–98; BMI 25.4
--- NOTE | 2022-04-21 | PATH_ITS ---
[facility] Accession Number: [id number] . 01 Material submitted: . PART A: stomach - ANTRUM PART B: gastrointestinal site - GASTRIC NODULE PART C: esophagus - DISTAL ESOPHAGEAL . 01 Diagnosis: A. Stomach, Antrum, Biopsy: Antral mucosa with mild reactive gastropathy and chronic gastritis. Negative for Helicobacter by immunohistochemistry. Negative for intestinal metaplasia. Negative for dysplasia and malignancy. . B. Stomach, Nodule, Biopsy: Body-type mucosa with mild chronic gastritis and benign xanthomatous changes. Negative for Helicobacter by immunohistochemistry. Negative for intestinal metaplasia. Negative for dysplasia and malignancy. . C. Distal Esophagus, Biopsy: Squamocolumnar junctional mucosa with chronic active inflammation and specialized intestinal metaplasia, consistent with Burdick's esophagus. Negative for dysplasia and malignancy. MR 04/26/2022 1230 Local . 01 Electronically signed: . Laurence Segal MD, Pathologist NPI- [id number] . 01 Gross description: . Part A: ANTRUM: Received in formalin are 2 fragment(s) of cabrera, soft tissue measuring 0.4 x 0.3 x 0.1 cm to 0.3 x 0.2 x 0.1 cm submitted entirely in 1 cassette(s) Part B: GASTRIC NODULE: Received in formalin is 1 fragment(s) of cabrera, soft tissue measuring 0.2 x 0.2 x 0.2 cm submitted entirely in 1 cassette(s) Part C: DISTAL ESOPHAGEAL: Received in formalin are multiple fragment(s) of cabrera, soft tissue measuring 0.7 x 0.4 x 0.1 cm in aggregate submitted entirely in 1 cassette(s) /CPE 04/22/2022 0633 Local . 01 Microscopic: . A. An immunohistochemical stain was performed to evaluate for Helicobacter organisms and is negative. The control stain showed appropriate reactivity. . B. An immunohistochemical stain was performed to evaluate for Helicobacter organisms and is negative. The control stain showed appropriate reactivity. . Immunohistochemical stains were also performed to characterize cells of interest. All control stains showed appropriate reactivity. . RESULTS: CD68: Positive. RACHELLE: Negative. . 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 . * This test was developed and its performance characteristics determined by [employer]. It has not been cleared or approved by the U.S. Food and Drug Administration. The FDA has determined that such clearance or approval is not necessary. This test is used for clinical purposes. It should not be regarded as investigational or for research.a . 01 Pathologist provided ICD-10: K22.70, R13.14 . 01 CPT . 835579, 257160, 869567, U58776, Y02593 Specimen Comment: A courtesy copy of this report has been sent to [phone], [phone] Specimen Comment: [id number] Performed at: 01 [facility] [address] [place] [address], [place], [place] [id number] MD Jagdeep Zabala MD Phone: [phone]
[2022-04-21] MEDS: LACTATED RINGERS 1,000 ML 42 ML IV (09:12)
--- NOTE | 2022-04-21 09:31 | P.HP_ITS ---
History of Present Illness History of Present Illness Date Patient Seen: 04/21/22 Time Patient Seen: 09:31 Chief complaint: EGD W/POSS BX Narrative: I reviewed the recent clinic note. She started back on omeprazole but was only taking it once per day. She realized the script was for twice a day and just started this approach 3 days ago. She has not noticed a huge change yet. 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 Chronic cough Chronic right hip pain Dysphagia Food sticks on swallowing HTN (hypertension) LBBB (left bundle branch block) Left axis deviation Left low back pain Lumbar region somatic dysfunction Measles (~1947) Memory problem Mumps Partial blindness (~1994) Pelvic somatic dysfunction Retinal detachment (~1994) Sacral region somatic dysfunction Segmental and somatic dysfunction of abdomen and other regions Somatic dysfunction of abdominal region 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, NYHA class 2 Tachycardia Weight loss counseling, encounter for Surgical History History of appendectomy History of carpal tunnel surgery S/p reverse total shoulder arthroplasty Family & Social History Family History Mother Cancer Father Cancer Social History: household members other Tobacco & Substance use: Smoking Status Never smoker alcohol intake current alcohol intake frequency 0-2 drinks per day Substance Use Type does not use Meds Home Medications and Allergies Home Medications Medication Instructions Recorded Confirmed Type ascorbic acid (vitamin C) 500 mg 1,000 mg PO BID ##0 06/23/16 04/21/22 History tablet cholecalciferol (vitamin D3) 50 1 tab PO BID ##0 06/23/16 04/21/22 History mcg (2,000 unit) capsule (Vitamin D3) fluticasone propionate 50 2 spray intranasal HS ##0 06/23/16 04/21/22 History mcg/actuation nasal spray,suspension carboxymethylcellulose sodium 0.5 1 drp OPHTH TIDP PRN Dry Eye(S) ##0 06/28/16 03/30/22 History % eye drops (Refresh Tears) cyclosporine 0.05 % eye drops in a 1 drp ophthalmic (eye) BID 03/21/19 03/30/22 History dropperette (Restasis) albuterol sulfate 90 mcg/actuation 1 puff inhalation PRN PRN 03/27/20 04/21/22 Rx aerosol inhaler (Proventil HFA) Shortness Of Breath #6.7 grams metoprolol succinate 25 mg 25 mg PO DAILY #30 tabs 07/23/21 04/21/22 Rx tablet,extended release 24 hr atorvastatin 10 mg tablet 10 mg PO BEDTIME #90 tabs 07/27/21 04/21/22 Rx Allergies Allergy/AdvReac Type Severity Reaction Status Date / Time No Known Drug Allergies Allergy Verified 04/21/22 09:22 Review of Systems Review of Systems ROS: Yes All systems reviewed with the patient and are negative except as otherwise documented Exam Const General: cooperative HENMT Head: normal to inspection Eyes General: appearance normal, both eyes and all related structures Neck Neck: normal visual inspection Chest Chest: normal inspection of the chest Resp Effort & Inspection: normal respiratory effort Cardio Rate: regular rate GI Inspection: normal to inspection Skin General: no rashes or lesions noted Neuro General: patient alert and patient awake Extrem General: normal to inspection and no pedal edema Psych Appearance: grossly normal Assessment & Plan Assessment & Plan narrative: 82-year-old female with a history of LA grade D erosive esophagitis. She has d ysphagia. Repeat EGD is pursued today. Time Spent With Patient Critical Care time: I spent a total of [] minutes of critical care time on this patient's care today; this time is exclusive of procedural time.
--- NOTE | 2022-04-21 09:32 | PM.PREOP ---
Pre-operative Note COVID-19 COVID-19 status: Negative Result date/Date tested (Pos, Neg/Pending): 04/20/22 Criteria for continued procedure: Possibility delay results in more complex future surgery or treatment Interval Note History & Physical reviewed/Exam performed by Physician: Yes Changes to H&P: No ASA Class (for procedural sedation): III
--- NOTE | 2022-04-21 10:20 | PM.OP.EGD ---
Operative Date/Time/Diagnoses Date of procedure: 04/21/22 Time of procedure: 10:20 Pre-op diagnosis: Dysphagia. History of severe esophagitis. Post-op diagnosis: same Procedure & Clinicians Study performed: EGD with biopsies Same procedure as scheduled: Yes Indications: Dysphagia. History of severe esophagitis. Surgeon: Indra Novak Procedure Notes SCOAP/Timeout: Done Procedure in detail: After the risks and benefits were explained, written and verbal informed consent was obtained. The patient was brought into the procedure room and placed into the left lateral decubitus position. Please see anesthesia notes for sedation details. The scope was introduced into the mouth through the bite block and advanced under direct visualization to the 2nd portion of the duodenum. The scope was slowly withdrawn carefully examining the mucosa for any defects or lesions. Retroflexed views were accomplished in the stomach. The stomach was decompressed, the scope was then removed from the patient who tolerated the procedure well. Sedation minutes: 10 Complications: none Impression: 1. Duodenum: This was visually normal from the bulb through to the 2nd portion. 2. Stomach: No ulcers. No outlet obstruction. No mass lesions. Retroflexed views of the LES were unremarkable apart from a small sliding hiatal hernia. There was a moderate gastropathy and therefore antral biopsies were taken for exclusion of H pylori. There was a small white nodule in the proximal gastric body. This was addressed with cold forceps. 3. Esophagus: The squamocolumnar junction was difficult to gauge. I suspect the GE junction was at approximately 36 cm from the incisors. There were tongues of salmon-colored mucosa that extended up to about 33 cm from the incisors. It was difficult to distinguish healing esophagitis from tongues of Barretts. Biopsies were acquired. Included in this specimen was several bites from the subtle nonobstructing partial Schatzki's ring that could be seen on occasion. The remainder of the esophagus appeared unremarkable. I did not see any obvious targets for dilatation today. Endoscopic diagnosis 1. Healing esophagitis versus short-segment Barretts versus both 2. Small hiatal hernia 3. Partial nonobstructing Schatzki's ring. 4. Gastric nodule 5. Gastropathy Post-procedure Plan for aftercare: 1. Await histopathology. 2. Continue omeprazole twice per day for the next couple of weeks and then drop down to once daily thereafter. 3. Follow up GI clinic in 6-8 weeks. Disposition: PACU
== END 2022-04-21 11:20 | disposition home or self-care (01) ==
PROVIDERS: Family Provider Family Medicine; PCP Family Medicine; Referring Provider Internal Medicine Gastroenterology; Visit Provider Internal Medicine Gastroenterology
PROC: 0DJ08ZZ Inspection of Upper Intestinal Tract, Via Natural or Artificial Opening Endoscopic (ICD-10-PCS; CPT 43235; principal; 2022-04-21 10:00)
DX: K20.90 Esophagitis, unspecified without bleeding (principal); K22.2 Esophageal obstruction; K44.9 Diaphragmatic hernia without obstruction or gangrene; K31.9 Disease of stomach and duodenum, unspecified; K29.50 Unspecified chronic gastritis without bleeding
CPT/HCPCS: 43239; J2704; J3010

== ENCOUNTER → 2022-05-27 11:21 | Outpatient (CLI) | payer MEDICARE, OTHER, SELFPAY ==
--- NOTE | 2022-05-27 11:23 | DI.RAD.S_ITS ---
PROCEDURE: XR SHOULDER LT MIN 2V INDICATIONS: shoulder weakness TECHNIQUE: 3 views of the shoulder were acquired. COMPARISON: [facility], CR, XR SHOULDER 2+ VIEWS BILATERAL, 09/29/2020, 11:28. FINDINGS: Bones: Left shoulder arthroplasty with expected appearance and stable alignment. No fractures or dislocations. No suspicious bony lesions. Visualized ribs appear intact. Soft tissues: No suspicious soft tissue calcifications. IMPRESSION: Left shoulder arthroplasty with expected appearance. Dictated by: Paola Cunha M.D. on 05/28/2022 at 8:28 Approved by: Paola Cunha M.D. on 05/28/2022 at 8:29
== END ==
PROVIDERS: Family Provider Family Medicine; PCP Family Medicine; Referring Provider Nurse Practitioner Family; Visit Provider Nurse Practitioner Family
DX: M19.012 Primary osteoarthritis, left shoulder (principal); Z96.612 Presence of left artificial shoulder joint; Z98.890 Other specified postprocedural states
CPT/HCPCS: 73030

== ENCOUNTER → 2022-06-23 15:10 | Outpatient (CLI) | payer MEDICARE, OTHER, SELFPAY ==
--- NOTE | 2022-06-23 | DI.MRI.S_ITS ---
PROCEDURE: MR HEAD/BRAIN WO/W CON INDICATIONS: Cerebral infarction, unspecified TECHNIQUE: Multiplanar multisequential MRI images of the brain were obtained before and after intravenous contrast administration. COMPARISON: [facility], CT, CT ANGIO HEAD AND NECK, 03/17/2022, 13:10. [facility], MR, MR HEAD/BRAIN WO/W CON, 10/20/2021, 15:42. FINDINGS: Cerebrum, Cerebellum and Brainstem: Mild atrophy and multifocal white matter chronic ischemic change noted, similar to the prior exam. The diffusion sequence is normal without evidence of acute infarct. No intracranial hemorrhage, mass lesion or midline shift. Focal cortical gliosis noted involving the medial occipital lingular gyrus, stable. Old lacunar infarct noted in the right thalamus also remains unchanged. Basal cisterns and foramen magnum contain appropriate anatomy and vascular flow voids. No evidence of dural or leptomeningeal thickening. Ventricles: Appropriate in size and position. No hydrocephalus. Skull Base: The bony sella, pituitary gland and infundibulum are unremarkable. Clivus and craniovertebral relationships are appropriate. Visualized portions of the seventh and eighth cranial nerve complexes and internal auditory canals are within normal limits. Scalp and Calvarium: The scalp is unremarkable. Underlying calvarium has an appropriate marrow signal. Mild hyperostosis frontalis interna. Paranasal Sinuses: Visualized sinuses are clear. Mastoids: Unremarkable as visualized. No mastoid effusion present. Orbits: Left orbital globe is small, irregular and partially calcified. Ocular prosthesis noted. Right-sided intra-ocular lens replacement. IMPRESSION: 1. Stable MRI of the brain without change from prior exam 10/20/2021. 2. 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 3. 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 on 06/23/2022 at 15:49
== END ==
PROVIDERS: Family Provider Family Medicine; PCP Family Medicine; Referring Provider Psychiatry & Neurology Neurology; Visit Provider Psychiatry & Neurology Neurology
DX: I63.9 Cerebral infarction, unspecified (principal); H44.522 Atrophy of globe, left eye
CPT/HCPCS: 70553; A9579

== ENCOUNTER → 2022-12-28 12:00 | Outpatient (CLI) | payer MEDICARE, OTHER, SELFPAY ==
--- NOTE | 2022-12-28 | DI.ECHO.S_ITS ---
[facility]---------+ [facility] +---------+ : : [address] : : : : [id number] : : : : Phone: [phone]+ Echocardiogram Report + + :Name: REE BOSCH Study Date: 12/28/2022 Height: 62 in : :[facility] ReadingLocation: Weight: 140 lb : : Gender: Female BSA: 1.6 m2 : :: 1940 Age: 82 yrs BP: 158/94 mmHg: :Reason For Study: DILATED CARDIOMYOPATHY : :Ordering Physician: MABEL, : :RUEL Performed By: Andra Carvajal : :Referring: RUEL MONROE : + + Interpretation Summary 1) Normal left ventricular thickness and size with mildly to moderately reduced systolic function (EF 40-45%). 2) Normal right ventricular size with mildly reduced function. 3) There is mild to moderate aortic regurgitation. 4) Compared to the Echo done 01/18/2022, LVEF has increased from 25-30% to 40- 45% on this study. Procedure: A two-dimensional transthoracic echocardiogram with color flow and Doppler was performed. The study quality was technically adequate. Comparison is made with the echocardiogram of 01/18/2022. The patient was in sinus rhythm with heart rates between 80-82 bpm during the exam. Left Ventricle: The left ventricle is normal in size and wall thickness. The ejection fraction is estimated to be 40-45%. There is mild to moderate global hypokinesis of the left ventricle. Diastolic parameters suggest probable normal left ventricular diastolic function and normal filling pressures. Right Ventricle: The right ventricle is normal size. Right ventricular systolic function is mildly reduced. Atria: The left atrial size is normal. Right atrial size is normal. There is no Doppler evidence for an interatrial shunt. Mitral Valve: The mitral valve is normal in structure and function. There is trace mitral regurgitation. Aortic Valve: The aortic valve is trileaflet. The aortic valve opens well. There is no aortic valve stenosis. There is mild to moderate aortic regurgitation. Tricuspid Valve: The tricuspid valve is normal in structure and function. There is mild tricuspid regurgitation. The right ventricular systolic pressure is estimated to be at least 21 mmHg based on an estimated right atrial pressure of 3 mm Hg. Pulmonic Valve: The pulmonic valve is not well visualized. There is no pulmonic valvular regurgitation. Great Vessels: The aortic root is normal size. The dimensions of the ascending aorta are normal. The IVC is of normal diameter and collapses greater than 50% with a sniff. This suggests a low right atrial pressure of 3 mm Hg. Pericardium/ Pleura There is no pericardial effusion. There is no pleural effusion. MMode/2D Measurements & Calculations LVIDd: 5.7 cm LVOT diam: 2.1 cm LVIDs: 4.3 cm Ao root diam: 3.8 cm FS: 25.0 % asc Aorta Diam: 3.5 cm EPSS: 0.97 cm Ao Arch Diam (Prox Trans): 1.9 cm IVSd: 0.92 cm LVPWd: 0.94 cm LV gallegos. diameter/BSA (cm/m^2): 3.5 LV sys. diameter/BSA (cm/m^2): 2.6 LA A2 area: 14.2 cm2 RA long axis: 4.5 cm LA A4 area: 9.6 cm2 RA area: 11.8 cm2 LA length (vol): 4.0 cm RA vol: 26.1 ml LA vol: 28.9 ml RA : 15.9 ml/m2 LA vol index: 17.6 ml/m2 IVC diam: 1.3 cm RVD1 (basal): 2.6 cm RVD2 (mid): 2.6 cm TAPSE: 1.4 cm Doppler Measurements & Calculations Ao V2 max: 106.0 cm/sec LVOT Max Christian: 90.8 cm/sec Ao V2 mean: 78.9 cm/sec LV V1 max P.3 mmHg Ao max P.5 mmHg LV V1 VTI: 15.8 cm Ao mean P.7 mmHg JASON(I,D): 3.1 cm2 Ao V2 VTI: 18.6 cm JASON(V,D): 3.1 cm2 sev ratio: 0.85 JASON indexed to BSA (cm^2/m^2): 1.9 MV E max christian: 85.4 cm/sec TR max christian: 213.3 cm/sec MV A max christian: 2.4 cm/sec TR max P.2 mmHg MV E/A: 35.9 PA V2 max: 50.9 cm/sec Med Peak E' Christian: 3.0 cm/sec PA V2 mean: 36.6 cm/sec E/E' med: 28.5 PA mean P.59 mmHg Lat Peak E' Christian: 2.7 cm/sec PA pr(Accel): 51.6 mmHg E/E' lat: 31.3 E/e' average: 29.9 MV dec time: 0.11 sec [facility] 57.2 ml Reading Physician:06:23 PM
== END ==
PROVIDERS: Family Provider Family Medicine; PCP Family Medicine; Referring Provider Physician Assistant Medical; Visit Provider Physician Assistant Medical
DX: I08.2 Rheumatic disorders of both aortic and tricuspid valves (principal); I42.0 Dilated cardiomyopathy
CPT/HCPCS: 93306

== ENCOUNTER → 2023-02-01 13:12 | Outpatient (CLI) | payer MEDICARE, OTHER, SELFPAY ==
--- NOTE | 2023-02-01 13:35 | DI.CT.S_ITS ---
PROCEDURE: CT CHEST HIGH RESOLUTION INDICATIONS: Shortness of breath TECHNIQUE: Noncontrast 1.0 and 5.0 mm thick contiguous axial sections from the pulmonary apex to the posterior costophrenic angles, with 7 mm thick coronal and sagittal MIP reformats. 1 mm thick dynamic expiratory images acquired through the upper, mid, and lower lungs. 1.0 mm thick axial sections acquired from the alpa to the posterior costophrenic angles in the prone end-inspiration position. For radiation dose reduction, the following was used: automated exposure control, adjustment of mA and/or kV according to patient size. COMPARISON: None. FINDINGS: Image quality: Diagnostic Lungs: No honeycombing, no reticulation, no ground-glass, no bronchiectasis. Pleura: No pleural effusions or pneumothorax. Mediastinum: Heart size is normal. No pericardial effusion. Thoracic aorta and central pulmonary arteries are normal in size. Esophagus is normal in caliber. Coronary artery calcifications with stents. Bones and chest wall: No suspicious bony lesions. No vertebral body compression fractures. Left chest wall generator with intravenous leads. Abdomen: Visualized upper abdominal solid organs and bowel loops appear normal. IMPRESSION: No evidence of interstitial lung disease. Dictated by: Zhen Mendoza M.D. on 02/01/2023 at 15:10 Approved by: Zhen Mendoza M.D. on 02/01/2023 at 15:12
== END ==
PROVIDERS: Family Provider Family Medicine; PCP Family Medicine; Referring Provider Internal Medicine; Visit Provider Internal Medicine
DX: R06.02 Shortness of breath (principal)
CPT/HCPCS: 71250

== ENCOUNTER → 2023-04-14 15:51 | Outpatient (CLI) | payer MEDICARE, OTHER, SELFPAY ==
[2023-04-14 16:55] LABS: Add Manual Diff / Slide Review NO; Basophils Absolute Auto 100 /uL (0-100); Basophils Percent Auto 0.7 % (0-2); Eosinophils Absolute Auto 100 /uL (0-450); Eosinophils Percent Auto 1.2 % (2-4); Hematocrit 37.1 % (36-46); Hemoglobin 12.7 g/dL (12.0-16.0); Lymphocytes Absolute Auto 900 /uL (1100-4500); Lymphocytes Percent Auto 12.1 % (25-40); Mean Corpuscular HGB Conc 34.3 % (30-36); Mean Corpuscular Volume 96.1 fL (80-100); Monocytes Absolute Auto 900 /uL (0-900); Monocytes Percent Auto 11.7 % (3-14); Neutrophils Absolute Auto 5800 /uL (1500-7000); Neutrophils Percent Auto 74.3 % (50-75); Platelet Count 242 X10^3/uL (150-400); Red Blood Cell Count 3.86 X10^6/uL (4.0-5.2); White Blood Cell Count 7.8 X10^3/uL (4.5-11.0)
[2023-04-14 17:27] LABS: Alanine Aminotransferase 34 IU/L (<35); Albumin 3.9 g/dL (3.5-5.0); Albumin Globulin Ratio 1.3 (1.0-2.8); Alkaline Phosphatase 116 U/L (38-126); Aspartate Aminotransferase 50 IU/L (14-36); BUN Creatinine Ratio 22.3 (6-22); Bilirubin Total 0.9 mg/dL (0.2-1.3); Blood Urea Nitrogen 21 mg/dL (7-17); Calcium 9.5 mg/dL (8.4-10.2); Carbon Dioxide 21 mmol/L (22-32); Chloride 101 mmol/L (98-107); Estimated Glomerular Filt Rate 59 mL/min (>60); Globulin 3.1 g/dL (1.7-4.1); Glucose 107 mg/dL (80-110); HEMOLYSIS < 15 (0-50); Potassium 4.5 mmol/L (3.4-5.1); Sodium 131 mmol/L (137-145)
== END ==
PROVIDERS: Family Provider Family Medicine; PCP Family Medicine; Referring Provider Family Medicine; Visit Provider Family Medicine
DX: I50.20 Unspecified systolic (congestive) heart failure (principal); I10 Essential (primary) hypertension; E78.00 Pure hypercholesterolemia, unspecified
CPT/HCPCS: 36415; 80053; 85025

== ENCOUNTER → 2023-05-04 10:13 | Outpatient (CLI) | payer MEDICARE, OTHER, SELFPAY ==
[2023-05-04 12:55] LABS: Appearance Urine UA CLEAR; Bilirubin Urine UA NEGATIVE (NEGATIVE); Color Urine UA YELLOW; Glucose Urine UA NEGATIVE (Negative); Ketones Urine UA NEGATIVE (NEGATIVE); Leukocyte Esterase Urine UA NEGATIVE (NEGATIVE); Nitrite Urine UA NEGATIVE (Negative); Occult Blood Urine UA NEGATIVE (Negative); Protein Urine UA NEGATIVE (Negative); Urobilinogen Urine UA 0.2 E.U./dL (0.2)
[2023-05-04 12:56] LABS: pH Urine UA 5.5 (4.5-8.0)
[2023-05-04 13:07] LABS: Creatinine Urine Random 96.4 mg/dL
[2023-05-04 13:15] LABS: Microalbumi Creatinin Ratio Ur 77.8 ug/mg CR (<30); Microalbumin Urine Random 7.5 mg/dL (0-1.6)
[2023-05-04 13:28] LABS: Bacteria Urine Occasional (0-1); Culture Indicated Urine Specimen Cultured; RBC Urine None Seen (0-5/HPF); Squamous Epithelial Cell Urine 5-10 /HPF (0-5/HPF); WBC Urine 5-10/HPF (0-5/HPF)
== END ==
PROVIDERS: Family Medicine; Family Provider Family Medicine; PCP Family Medicine; Visit Provider Family Medicine
DX: I11.0 Hypertensive heart disease with heart failure (principal); I50.20 Unspecified systolic (congestive) heart failure; N17.9 Acute kidney failure, unspecified; N30.00 Acute cystitis without hematuria
CPT/HCPCS: 81001; 82043; 82570; 87086

== ENCOUNTER → 2023-05-04 10:13 | Outpatient (CLI) | payer MEDICARE, OTHER, SELFPAY ==
[2023-05-04 11:47] LABS: BUN Creatinine Ratio 30.4 (6-22); Blood Urea Nitrogen 24 mg/dL (7-17); Calcium 10.1 mg/dL (8.4-10.2); Carbon Dioxide 26 mmol/L (22-32); Chloride 100 mmol/L (98-107); Estimated Glomerular Filt Rate > 60 mL/min (>60); Glucose 104 mg/dL (80-110); HEMOLYSIS < 15 (0-50); Potassium 5.2 mmol/L (3.4-5.1); Sodium 134 mmol/L (137-145)
[2023-05-04 12:29] LABS: Cholesterol 148 mg/dL (140-199); HDL Cholesterol 41 mg/dL (40-60); LDL Cholesterol Calculated 82 mg/dL (<100); Triglycerides 125 mg/dL (35-150)
== END ==
PROVIDERS: Family Provider Family Medicine; PCP Family Medicine; Referring Provider Family Medicine; Visit Provider Family Medicine
DX: I50.20 Unspecified systolic (congestive) heart failure (principal); I11.0 Hypertensive heart disease with heart failure; E78.00 Pure hypercholesterolemia, unspecified; N17.9 Acute kidney failure, unspecified; N30.00 Acute cystitis without hematuria
CPT/HCPCS: 36415; 80048; 80061; 81001; 82043; 82570; 87086

== ENCOUNTER → 2023-10-18 09:48 | Outpatient (CLI) | payer MEDICARE, OTHER, SELFPAY ==
--- NOTE | 2023-11-07 12:45 | DI.NM.S_ITS ---
DATE OF SERVICE: 10/18/2023 NAME OF STUDY: Pharmacological perfusion study. INDICATION: Heart failure with reduced ejection fraction, CAD, hypertension, hyperlipidemia, Bi-V AICD. RADIOPHARMACEUTICAL: Please note that the patient refused stress test. It is resting study only. 11.8 millicurie technetium-99m Myoview IV was injected at rest. RAW DATA: Breast shadow seen. Increased subdiaphragmatic activity. GATED STUDY: Resting LV ejection fraction 47% with global hypokinesis. Resting end-diastolic volume 64 mL. Please note, the patient refused to have stress test. There is no stress perfusion study. Only resting study available. On resting study, there is small size, mildly decreased perfusion of distal anterior septum and anterior apical portion. The patient had perfusion study in September 25, 2021. At that time, also patient had fixed distal anteroseptal and anterior apical wall defect with slight improvement on prone images. No significant change from previous study. Wendy Mullen - CASE MANAGEMENT RN/fn/ doc#: [id number]/job#: [id number] dd: 11/04/2023 16:14:00 dt: 11/04/2023 20:52:00 DICTATING /COPIES TO: Bob Winters MD COPIES MNE: SOY;
== END ==
PROVIDERS: Family Provider Family Medicine; PCP Family Medicine; Referring Provider Internal Medicine Cardiovascular Disease; Visit Provider Internal Medicine Cardiovascular Disease
DX: I49.3 Ventricular premature depolarization (principal); I25.10 Atherosclerotic heart disease of native coronary artery without angina pectoris; I11.0 Hypertensive heart disease with heart failure; I50.9 Heart failure, unspecified; E78.5 Hyperlipidemia, unspecified; Z95.810 Presence of automatic (implantable) cardiac defibrillator
CPT/HCPCS: 78451; A9502

== ENCOUNTER → 2024-03-30 12:15 | Outpatient (CLI) | payer MEDICARE, OTHER, SELFPAY ==
--- NOTE | 2024-03-30 12:17 | DI.ECHO.S_ITS ---
[facility]---------+ [facility] : : [address] : : [address] : : [id number] : : Phone: [phone] Echocardiogram Report + + :Name: REE BOSCH Study Date: 03/30/2024 Height: 62 in : :Hospital ReadingLocation: Weight: 150 lb : : Gender: Female BSA: 1.7 m2 : :: 1940 Age: 84 yrs BP: 124/80 mmHg: :Ordering Physician: BRENDEN, : :BURKE Performed By: Gabriela El : :Referring: BRUKE WILCOX : + + Interpretation Summary The ejection fraction is estimated to be 30-35%. There is a moderate dyssynchronous contraction pattern due to the paced rhythm. There is apical septal wall hypokinesis. Inferolateral hypokinesis Inferoseptal hypokinesis Left ventricular function has mildly worsened compared to the previous exam. There is a catheter/pacemaker lead seen in the right atrium. There is mild mitral regurgitation. There is mild aortic regurgitation. Procedure: A two-dimensional transthoracic echocardiogram with color flow and Doppler was performed in limited views only. The study quality was technically adequate. Comparison is made with the echocardiogram of 04/03/2023. The patient was in a bradycardic rhythm during the exam. The heart rate ranged between 35-62 bpm during the study. Left Ventricle: The left ventricle is normal in size. Left ventricular wall thickness is borderline increased. The ejection fraction is estimated to be 30-35%. Left ventricular function has mildly worsened compared to the previous exam. There is a moderate dyssynchronous contraction pattern due to the paced rhythm. There is apical septal wall hypokinesis. Inferolateral hypokinesis Inferoseptal hypokinesis. Right Ventricle: The right ventricle is grossly normal size. Atria: The left atrial size is normal. The right atrium is mildly dilated. There is a catheter/pacemaker lead seen in the right atrium. There is no Doppler evidence for an interatrial shunt. The atrial septum is aneurysmal. Mitral Valve: The mitral valve leaflets are mildly calcified. There is mild mitral annular calcification. There is no mitral valve stenosis. There is mild mitral regurgitation. Aortic Valve: The aortic valve is moderately calcified. There is mildly reduced leaflet mobility. Calcified aortic mitral curtain. There is no aortic valve stenosis. There is mild aortic regurgitation. Tricuspid Valve: The tricuspid valve leaflets are thin and pliable. There is a trace or physiologic amount of tricuspid regurgitation. Pulmonic Valve: The pulmonic valve leaflets are thin and pliable; valve motion is normal. There is no pulmonic valvular regurgitation. Great Vessels: The aortic root is borderline dilated. The ascending aorta is mildly enlarged. The aortic arch is normal in size. The pulmonary artery is normal size. The IVC is of normal diameter and collapses greater than 50% with a sniff. This suggests a low right atrial pressure of 3 mm Hg. Pericardium/ Pleura There is no pericardial effusion. There is no pleural effusion. MMode/2D Measurements & Calculations LVIDd: 4.9 cm LVOT diam: 1.6 cm LVIDs: 4.1 cm Ao root diam: 3.8 cm FS: 15.9 % asc Aorta Diam: 3.8 cm EPSS: 0.80 cm Ao Arch Diam (Prox Trans): 2.2 cm IVSd: 1.1 cm LVPWd: 1.1 cm LV gallegos. diameter/BSA (cm/m^2): 2.9 LV sys. diameter/BSA (cm/m^2): 2.4 LA A2 area: 16.4 cm2 RA long axis: 6.1 cm LA A4 area: 16.0 cm2 RA area: 20.8 cm2 LA length (vol): 5.7 cm RA vol: 60.1 ml LA vol: 39.0 ml RA : 35.5 ml/m2 LA vol index: 23.0 ml/m2 IVC diam: 1.9 cm TAPSE: 2.0 cm Doppler Measurements & Calculations Ao V2 max: 129.4 cm/sec LVOT Max Christian: 86.9 cm/sec Ao V2 mean: 86.9 cm/sec LV V1 max P.0 mmHg Ao max P.7 mmHg LV V1 VTI: 17.8 cm Ao mean P.4 mmHg JASON(I,D): 1.7 cm2 Ao V2 VTI: 21.5 cm JASON(V,D): 1.4 cm2 sev ratio: 0.83 JASON indexed to BSA (cm^2/m^2): 1.0 MV E max christian: 82.5 cm/sec TR max christian: 199.7 cm/sec MV A max christian: 72.1 cm/sec TR max P.4 mmHg MV E/A: 1.1 PA V2 max: 52.1 cm/sec Med Peak E' Christian: 8.1 cm/sec PA V2 mean: 34.7 cm/sec E/E' med: 10.2 PA mean P.53 mmHg Lat Peak E' Christian: 14.1 cm/sec PA pr(Accel): 61.9 mmHg E/E' lat: 5.9 E/e' average: 8.0 MV dec time: 0.14 sec MVA(VTI): 1.1 cm2 MV V2 mean: 54.4 cm/sec SV(LVOT): 37.4 ml MV mean P.4 mmHg MV V2 VTI: 34.8 cm Reading Physician:03:55 PM
== END ==
PROVIDERS: Family Provider Family Medicine; PCP Family Medicine; Referring Provider Physician Assistant; Visit Provider Physician Assistant
DX: I08.0 Rheumatic disorders of both mitral and aortic valves (principal); I42.8 Other cardiomyopathies; I77.89 Other specified disorders of arteries and arterioles; Z95.0 Presence of cardiac pacemaker
CPT/HCPCS: 93306

== ENCOUNTER → 2024-08-24 14:43 | Outpatient (CLI) | payer MEDICARE, OTHER, SELFPAY ==
[2024-08-24 17:07] LABS: Add Manual Diff / Slide Review NO; Basophils Absolute Auto 0 /uL (0-100); Basophils Percent Auto 0.4 % (0-2); Eosinophils Absolute Auto 100 /uL (0-450); Eosinophils Percent Auto 0.8 % (2-4); Hematocrit 38.2 % (36-46); Hemoglobin 13.1 g/dL (12.0-16.0); Lymphocytes Absolute Auto 700 /uL (1100-4500); Lymphocytes Percent Auto 9.8 % (25-40); Mean Corpuscular HGB Conc 34.2 % (30-36); Mean Corpuscular Hemoglobin 33.6 PG (26-34); Mean Corpuscular Volume 98.3 fL (80-100); Monocytes Absolute Auto 800 /uL (0-900); Monocytes Percent Auto 12.5 % (3-14); Neutrophils Absolute Auto 5100 /uL (1500-7000); Neutrophils Percent Auto 76.5 % (50-75); Platelet Count 173 X10^3/uL (150-400); Red Blood Cell Count 3.89 X10^6/uL (4.0-5.2); White Blood Cell Count 6.7 X10^3/uL (4.5-11.0)
[2024-08-24 17:21] LABS: Hemoglobin A1C% w Est Avg Glu 5.6 % (4.0-6.0)
[2024-08-24 17:25] LABS: Alanine Aminotransferase 306 IU/L (<35); Albumin 4.5 g/dL (3.5-5.0); Albumin Globulin Ratio 1.8 (1.0-2.8); Alkaline Phosphatase 86 U/L (38-126); Aspartate Aminotransferase 211 IU/L (14-36); BUN Creatinine Ratio 22.4 (6-22); Bilirubin Total 1.2 mg/dL (0.2-1.3); Blood Urea Nitrogen 35 mg/dL (7-17); Calcium 9.2 mg/dL (8.4-10.2); Carbon Dioxide 18 mmol/L (22-32); Chloride 95 mmol/L (98-107); Estimated Glomerular Filt Rate 32 mL/min (>60); Globulin 2.5 g/dL (1.7-4.1); Glucose 96 mg/dL (70-99); HEMOLYSIS 21 (0-50); Potassium 5.2 mmol/L (3.4-5.1); Sodium 124 mmol/L (137-145)
== END ==
PROVIDERS: Family Provider Family Medicine; PCP Family Medicine; Referring Provider Family Medicine; Visit Provider Family Medicine
DX: E87.5 Hyperkalemia (principal); I11.0 Hypertensive heart disease with heart failure; I50.20 Unspecified systolic (congestive) heart failure; R27.0 Ataxia, unspecified; R44.1 Visual hallucinations
CPT/HCPCS: 36415; 80053; 83036; 85025

== ENCOUNTER → 2024-08-31 13:52 | Outpatient (CLI) | payer MEDICARE, OTHER, SELFPAY ==
[2024-08-31 14:45] LABS: Alanine Aminotransferase 304 IU/L (<35); Albumin 4.6 g/dL (3.5-5.0); Alkaline Phosphatase 93 U/L (38-126); Aspartate Aminotransferase 182 IU/L (14-36); BUN Creatinine Ratio 23.5 (6-22); Bilirubin Total 1.2 mg/dL (0.2-1.3); Blood Urea Nitrogen 32 mg/dL (7-17); Calcium 9.9 mg/dL (8.4-10.2); Carbon Dioxide 24 mmol/L (22-32); Chloride 96 mmol/L (98-107); Estimated Glomerular Filt Rate 38 mL/min (>60); Globulin 2.3 g/dL (1.7-4.1); Glucose 102 mg/dL (70-99); HEMOLYSIS 41 (0-50); Sodium 129 mmol/L (137-145); Total Protein 6.9 g/dL (6.3-8.2)
[2024-08-31 14:48] LABS: Potassium 6.5 mmol/L (3.4-5.1)
== END ==
PROVIDERS: Family Provider Family Medicine; PCP Family Medicine; Referring Provider Family Medicine; Visit Provider Family Medicine
DX: E87.1 Hypo-osmolality and hyponatremia (principal); R74.01 Elevation of levels of liver transaminase levels; N17.9 Acute kidney failure, unspecified
CPT/HCPCS: 36415; 80053

== ENCOUNTER 2024-09-19 11:55 | Emergency (ER) | payer MEDICARE, OTHER, SELFPAY ==
[2024-09-19] VITALS (13 sets, daily range): BP systolic 109–149; BP diastolic 54–69; PULSE 79–81; RESP 14–26; TEMP 36.7–37; O2SAT 93–98; BMI 28.9
--- NOTE | 2024-09-19 11:44 | ED.WEAKNESS ---
HPI - Weakness General Chief complaint: Weakness Stated complaint: SOB, weakness Time Seen by Provider: 09/19/24 11:55 History of Present Illness HPI Narrative: 84-year-old female with a past medical history of CHF pacemaker, comes into the ED from home via EMS for evaluation of generalized weakness shortness breath, she states that she has been having exertional dyspnea for a ?years however she states that this has been bothering her more over the past month, she states that she has followed up with her primary care doctor who did lab work in an outpatient setting states that it was abnormal therefore she called her primary care doctor and was instructed come into the ED for further evaluation treatment. Patient stating she only feels generalized weakness, however she states that she is able to stand bear weight ambulate unassisted. He denies any falls not on any blood thinners denies any other symptoms such as headache visual disturbances chest pain fever chills nausea vomiting abdominal pain or any other GI/ symptoms time. At time of evaluation NIH of 0 no focal deficits Related Data Home Medications ?Medication ?Instructions ?Recorded ?Confirmed ascorbic acid (vitamin C) 500 mg 1,000 mg PO BID ##0 06/23/16 08/31/24 tablet cholecalciferol (vitamin D3) 50 1 tab PO BID ##0 06/23/16 08/31/24 mcg (2,000 unit) capsule (Vitamin D3) carboxymethylcellulose sodium 0.5 1 drp OPHTH TIDP PRN Dry Eye(S) ##0 06/28/16 08/31/24 % eye drops (Refresh Tears) cyclosporine 0.05 % eye drops in a 1 drp ophthalmic (eye) BID 03/21/19 08/31/24 dropperette (Restasis) omeprazole 20 mg capsule,delayed 20 mg PO BID 04/21/22 08/31/24 release latanoprost 0.005 % eye drops drp EYE-BOTH 08/01/23 08/31/24 losartan 25 mg tablet (Cozaar) 12.5 mg PO DAILY 01/26/24 08/31/24 spironolactone 25 mg tablet 25 mg PO DAILY 02/03/24 08/31/24 Held on 08/31/24. Instructions: hyperkalemia amiodarone 200mg See Rx Instructions PO BID 05/22/24 08/31/24 rocklatan 0.00.005% drops EYE-RIGHT 05/22/24 08/31/24 Previous Rx's ?Medication ?Instructions ?Recorded atorvastatin 10 mg tablet 10 mg PO BEDTIME #90 tabs 07/27/21 fluticasone fur. 200 mcg-umeclid 1 inh inhalation DAILY #60 ea 08/30/23 62.5 mcg-vilant 25 mcg inhalat.powder (Trelegy Ellipta) albuterol sulfate 90 mcg/actuation 1 puff inhalation Q4-6H PRN 01/30/24 aerosol inhaler (Proventil HFA) Shortness Of Breath #6.7 grams metoprolol succinate 100 mg 100 mg PO BID #180 tabs 03/08/24 tablet,extended release 24 hr clobetasol 0.05 % topical ointment 1 applic topical BEDTIME #30 grams 05/22/24 DISABLED PARKING PERMIT #1 ea 08/24/24 furosemide 20 mg tablet 20 mg PO DAILY #90 tabs 08/31/24 Allergies Allergy/AdvReac Type Severity Reaction Status Date / Time sulfamethoxazole (From AdvReac Intermediate Verified 09/19/24 11:46 Bactrim) trimethoprim (From Bactrim) AdvReac Intermediate Verified 09/19/24 11:46 Review of Systems Review of Systems Narrative: General: Positive generalized weakness Denies fever, chills, weight loss HEENT: Denies headache, eye drainage, eye irritation, head trauma, sore throat, voice change Cardiovascular: Denies any chest pain, palpitations, tachycardia Respiratory: Positive shortness of breath, denies, cough, wheeze, stridor GI/: Denies any abdominal pain, nausea, vomiting, diarrhea, bright red blood per rectum, melanotic stools, urinary frequency, urinary retention, dysuria, hematuria MSK: Denies any joint pain, muscle pains, swelling Skin: Denies any rashes, lesions, discoloration Neuro: Denies any headache, lightheadedness, dizziness, fainting, weakness Psych: Denies SI/HI Patient History Medical History (Updated 09/19/24 @ 14:15 by Boris Little DO) Transaminitis Hyponatremia Hallucinations, visual Ataxia Cellulitis Skin tear of right lower leg without complication Skin change Eczema of both hands Left shoulder strain Pyelonephritis Cystic mass of pancreas Acute cystitis (~03/2023) Sepsis (~03/2023) Weakness generalized Strain of abdominal wall Pure hypercholesterolemia GERD with esophagitis Left lower quadrant abdominal pain of unknown etiology Sacral region somatic dysfunction Pelvic somatic dysfunction Lumbar region somatic dysfunction Segmental and somatic dysfunction of abdomen and other regions Somatic dysfunction of abdominal region 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, NYHA class 2 Food sticks on swallowing Chronic right hip pain Left low back pain HTN (hypertension) Left axis deviation LBBB (left bundle branch block) Tachycardia Dysphagia Weight loss counseling, encounter for Chronic cough Acne (~1949) Allergies (~1970) Carpal tunnel syndrome (~2011) Mumps Measles (~1947) Chicken pox (~1945) Retinal detachment (~1994) Partial blindness (~1994) Memory problem 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 Asthma (~1979) Surgical History History of appendectomy History of carpal tunnel surgery S/p reverse total shoulder arthroplasty Family History Mother Cancer Father Cancer Social History household members: other Smoking Status: Never smoker alcohol intake: current substance use type: does not use alcohol intake frequency: a few times a month Exam Narrative Exam Narrative: General: Cooperative, well-developed, not in acute distress HEENT: Normocephalic, atraumatic, PERRLA, normal sclera, eyelids normal Neck: Active full range of motion, atraumatic Chest: Normal to inspection, negative crepitus, no overlying erythema ecchymosis Respiratory: Normal respiratory effort, not in acute respiratory distress, clear to auscultation bilaterally negative cough, wheeze, tachypnea, rhonchi, rales Cardiology: Regular rate rhythm negative gallop, murmur, rubs GI/: No tenderness to palpation, soft, non rigid, normal to inspection, exam deferred MSK: Full active range of motion in all 4 extremities, atraumatic, no tenderness to palpation of any bony prominences Skin: No rashes or lesions noted Neuro: NIH of 0 no focal deficits Alert awake oriented x3, moves all 4 extremities spontaneously, cranial nerves intact, able to answer all questions appropriately follows commands appropriately Psych: Cooperative, negative suicidal or homicidal ideations Initial Vital Signs Initial Vital Signs: Vital Signs Temperature 98.6 F 09/19/24 11:45 Pulse Rate 79 09/19/24 11:45 Respiratory Rate 16 09/19/24 11:45 Blood Pressure 118/62 09/19/24 11:45 Pulse Oximetry 97 09/19/24 11:45 Oxygen Delivery Method Room Air 09/19/24 11:45 Course Orders Ordered: ED Orders 09/19/24 11:45 XR chest 1V Stat EKG-12 Lead Stat 09/19/24 11:46 CT angio chest PE protocol Stat CT head/brain wo con Stat 09/19/24 12:10 Complete Blood Count AUTO DIFF Stat Comprehensive Metabolic Panel Stat Lipase Stat MAG [Magnesium] Stat NT-proBNP (BNP-Adult 18+) Stat PTT Partial Thromboplastin Juancarlos Stat Prothrombin Time INR Stat Troponin & CK Cardiac Panel Stat 09/19/24 12:30 Covid-19 + FLU A/B + RSV - PCR Stat Urinalysis and Microscopic Stat Vital Signs Vital signs: Vital Signs - 8 hr 09/19/24 11:45 09/19/24 11:50 09/19/24 12:00 Temperature 98.6 F Pulse Rate 79 80 80 Respiratory Rate 16 16 14 Blood Pressure 118/62 Pulse Oximetry 97 98 97 Oxygen Delivery Method Room Air 09/19/24 12:11 09/19/24 12:11 09/19/24 12:32 Temperature Pulse Rate 80 80 Respiratory Rate 15 26 H Blood Pressure 112/68 Pulse Oximetry 94 95 Oxygen Delivery Method Room Air 09/19/24 12:33 09/19/24 12:33 09/19/24 13:00 Temperature Pulse Rate 80 80 Respiratory Rate 17 21 Blood Pressure 149/69 H Pulse Oximetry 97 94 Oxygen Delivery Method 09/19/24 13:01 09/19/24 13:01 09/19/24 13:14 Temperature Pulse Rate 80 Respiratory Rate 26 H Blood Pressure 121/62 137/68 Pulse Oximetry 95 Oxygen Delivery Method 09/19/24 13:14 09/19/24 13:30 09/19/24 13:31 Temperature Pulse Rate 79 80 Respiratory Rate 16 19 Blood Pressure 109/54 L Pulse Oximetry 93 96 Oxygen Delivery Method Room Air 09/19/24 13:31 Temperature Pulse Rate 80 Respiratory Rate 23 Blood Pressure Pulse Oximetry 96 Oxygen Delivery Method MDM - Weakness Differential Diagnosis Differential diagnosis: Likely acute myocardial infarction, anemia, hypothyroidism, dehydration and other (UTI, electrolyte abnormality, ACS, pneumonia, CVA) Lab Data 09/19/24 12:10 09/19/24 12:10 Labs: Lab Results 09/19/24 09/19/24 Range/Units 12:10 12:30 WBC 4.2 L (4.5-11.0) X10^3/uL RBC 3.78 L (4.0-5.2) X10^6/uL Hgb 13.0 (12.0-16.0) g/dL Hct 37.4 (36-46) % MCV 99.0 (80-100) fL MCH 34.3 H (26-34) PG MCHC 34.7 (30-36) % RDW 15.1 H (11.6-14.8) % Plt Count 169 (150-400) X10^3/uL Neut % (Auto) 71.4 (50-75) % Lymph % (Auto) 15.1 L (25-40) % [place] % (Auto) 11.4 (3-14) % Eos % (Auto) 1.4 L (2-4) % Baso % (Auto) 0.7 (0-2) % Neut # (Auto) 3000 (6381-8953) /uL Lymph # (Auto) 600 L (3807-4826) /uL [place] # (Auto) 500 (0-900) /uL Eos # (Auto) 100 (0-450) /uL Baso # (Auto) 0 (0-100) /uL PT 11.1 (9.4-12.5) SECONDS INR 1.0 (0.9-1.3) APTT 24 L (25.1-36.5) SECONDS Sodium 132 L (137-145) mmol/L Potassium 3.9 (3.4-5.1) mmol/L Chloride 96 L (98-107) mmol/L Carbon Dioxide 28 (22-32) mmol/L BUN 25 H (7-17) mg/dL Creatinine 1.30 H (0.52-1.04) mg/dL Estimated GFR 40 L (>60) mL/min BUN/Creatinine Ratio 19.2 (6-22) Glucose 106 H (70-99) mg/dL Calcium 9.1 (8.4-10.2) mg/dL Magnesium 1.7 (1.6-2.3) mg/dL Total Bilirubin 1.4 H (0.2-1.3) mg/dL AST 172 H (14-36) IU/L ALT 251 H (<35) IU/L Alkaline Phosphatase 99 (38-126) U/L Total Creatine Kinase 80 (30-135) U/L Troponin I 0.015 (0.01-0.034) ng/mL NT-Pro-B Natriuret Pep 960 H (<450) pg/mL Total Protein 6.9 (6.3-8.2) g/dL Albumin 4.2 (3.5-5.0) g/dL Globulin 2.7 (1.7-4.1) g/dL Albumin/Globulin Ratio 1.6 (1.0-2.8) Lipase 92 (23-300) U/L Urine Color Yellow Urine Appearance Clear Urine pH 5.5 (4.5-8.0) Ur Specific [place] <=1.005 (1.000-1.035) Urine Protein Negative (Negative) Urine Glucose (UA) Negative (Negative) g/dL Urine Ketones Negative (NEGATIVE) Urine Occult Blood Negative (Negative) Urine Nitrate Negative (Negative) Urine Bilirubin Negative (NEGATIVE) Urine Urobilinogen 0.2 (0.2) E.U./dL Ur Leukocyte Esterase Negative (NEGATIVE) Urine RBC None seen (0-5/HPF) Urine WBC None seen (0-5/HPF) Ur Squamous Epith Cells None seen (0-5/HPF) Urine Bacteria None seen (None) Ur Culture Indicated? Cult not indicated Vol Urine Centrifuged 10ml (spun) SARS-CoV-2 (PCR) Negative (Negative) Influenza A (RT-PCR) Flu a negative (NEGATIVE) Influenza B (RT-PCR) Flu b negative (NEGATIVE) RSV (PCR) Negative (Negative) Imaging Data CT scan - head: Radiologist Impression: [address] [address] [address] Scan Report Signed Patient: Wendy Mullen MR#: [id number] : 1940 Acct:[id number] Age/Sex: 84 / F Date of Service: 09/19/24 Loc: ED Accession Number: [id number] Procedure: CT head/brain wo con Ordering Provider: Boris Little D.O. PROCEDURE: CT HEAD/BRAIN WO CON INDICATIONS: weakness TECHNIQUE: Noncontrast 4.5 mm thick angled axial sections acquired from the foramen magnum to the vertex, with coronal and sagittal reformats. For radiation dose reduction, the following was used: automated exposure control, adjustment of mA and/or kV according to patient size. COMPARISON: [facility], CT, CT ANGIO HEAD AND NECK, 03/17/2022, 13:10. FINDINGS: Image quality: Diagnostic. CSF spaces: Basal cisterns are patent. No extra-axial fluid collections. The ventricles are symmetric in size and shape. Brain: No intracranial bleeds or mass effect. There is cerebral volume loss, with resultant ventricular and sulcal prominence. There are periventricular and deep white matter chronic small vessel ischemic changes. There is intracranial internal carotid artery atherosclerosis. Skull and face: Left globe postoperative change. Calvarium and visualized facial bones appear intact, without suspicious lesions. Sinuses: Visualized sinuses and mastoids are clear. IMPRESSION: No acute intracranial pathology. Chest x-ray: Radiologist Impression: [address] [address] XRay Report Signed Patient: Wendy Mullen MR#: [id number] : 1940 Acct:[id number] Age/Sex: 84 / F Date of Service: 09/19/24 Loc: ED Accession Number: [id number] Procedure: XR chest 1V Ordering Provider: Boris Little D.O. PROCEDURE: XR CHEST 1V INDICATIONS: weakness, sob TECHNIQUE: One view of the chest was acquired. COMPARISON: [facility], CR, XR CHEST 1 VIEW, 04/01/2023, 14:20. FINDINGS: Surgical changes and devices: Bilateral shoulder arthroplasties. Cardiac pacemaker is seen with pulse generator in the left chest. Lungs and pleura: Low lung volumes bilaterally. No focal consolidation. No pleural effusions or pneumothorax. Mediastinum: Mediastinal contours appear normal. Heart size is normal. Bones and chest wall: No suspicious bony lesions. Overlying soft tissues appear unremarkable. IMPRESSION: Low lung volumes bilaterally. No acute cardiopulmonary abnormality is seen. CTA PE: Radiologist Impression: [address] [address] [address] Scan Report Signed Patient: Wendy Mullen MR#: [id number] : 1940 Acct:[id number] Age/Sex: 84 / F Date of Service: 09/19/24 Loc: ED Accession Number: [id number] Procedure: CT angio chest PE protocol Ordering Provider: Boris Little D.O. PROCEDURE: CT ANGIO CHEST PE PROTOCOL INDICATIONS: exertional dyspnea TECHNIQUE: After the administration of intravenous contrast, 2 mm thick sections acquired from the pulmonary apices to the posterior costophrenic angles. 3-dimensional maximum intensity projection (MIP) coronal and sagittal reformats were then acquired through the thorax. For radiation dose reduction, the following was used: automated exposure control, adjustment of mA and/or kV according to patient size. COMPARISON: [facility], CR, XR CHEST 1V, 09/19/2024, 12:08. FINDINGS: Image quality: Diagnostic. Pulmonary arteries: Pulmonary arteries are normal in size, and demonstrate no intraluminal filling defects to suggest central pulmonary embolism. Lower Neck: No enlarged lymph nodes. Thyroid: No thyroid nodules which require sonographic follow up, per consensus guidelines. Axillae: No enlarged lymph nodes. Chest Wall: Unremarkable. Bones: Osteopenia with multiple old mild compressions. Lungs and Pleura: No pneumothorax or pleural effusions. No consolidation or suspicious nodules. Heart: Heart size is normal. Advanced coronary artery calcifications. Pacemaker. Likely coronary artery stents. No pericardial effusion. Thoracic Vessels: No aortic aneurysm. Mediastinum and Josselin: No enlarged lymph nodes. Esophagus: No wall thickening. No hiatal hernia. Upper Abdomen: Visualized upper abdomen solid organs and bowel loops appear normal. IMPRESSION: No pulmonary embolus. No acute cardiopulmonary process. Coronary artery disease. Chronic osteoporotic compressions. ECG Data Interpretation: EKG interpreted ED physician AV dual paced rhythm at 80 no STEMI MDM Narrative Medical decision making narrative: 84-year-old female with a past medical history of hypertension hyperlipidemia presents to the emergency department from home via EMS for evaluation of generalized weakness, she states that she has been having exertional dyspnea for ?years however she states that it has been bothering her more over the past month, has followed up with the primary care doctor for this, she states that she had outpatient lab work performed a few weeks ago and was abnormal, she states that she called her primary care doctor again today and was instructed come into the ED for further evaluation treatment. At time of examination she is only complaining of generalized weakness however she states that she is able to stand bear weight ambulate unassisted, NIH of 0 no focal deficits she denies any other symptoms at this time. Patient had lab work imaging EKG performed here in the emergency department. EKG nonischemic in nature, no leukocytosis, Chem panel unremarkable, creatinine at baseline 1.30, AST ALT he has improving slightly elevated bilirubin at 1.4 but patient not complaining of any abdominal pain nausea or vomiting no tenderness to palpation on exam, troponin indeterminate range of 0.015 but not complaining of any chest pain, BNP 960, urinalysis not consistent with acute urinary tract infection respiratory panel negative, patient was instructed to follow up with primary care in outpatient setting she verbalized understanding of this and agrees to being discharged home with outpatient follow up Discharge Plan Departure Patient Disposition: Home Clinical Impression: Episode of generalized weakness Activity Restrictions/Additional Instructions: Please follow up with your primary care doctor Please read the discharge instructions sheet carefully and bring all papers to all doctor follow-up visits, as it may contain information that your doctor may want to see. Disease processes change and evolve, if your symptoms worsen or if you develop any new symptoms that are concerning to you please return for evaluation. Your evaluation today does not show any evidence of any life-threatening/serious illnesses requiring admission to the hospital or surgery. Please follow-up with your doctor for re-evaluation in approximately 1 day. Seek immediate medical attention for any worrisome symptoms. *If you do not have a primary care provider please contact the [facility] Resource line at [phone]. They will ask some questions about your medical history and help get you set up with a doctor in the community. Prescriptions: No Action ascorbic acid (vitamin C) 500 MG tablet 1,000 mg PO BID Qty: 0 cholecalciferol (vitamin D3) [Vitamin D3] 2,000 UNIT capsule 1 tab PO BID Qty: 0 carboxymethylcellulose sodium [Refresh Tears] 15 ML drops 1 drp OPHTH TIDP PRN (Reason: Dry Eye(S)) Qty: 0 atorvastatin 10 mg tablet 10 mg PO BEDTIME Qty: 90 3RF Trelegy Ellipta 200-62.5-25 mcg blister with device 1 inh inhalation DAILY Qty: 60 11RF Rx Instructions: rinse mouth with water, gargle and spit after each use albuterol sulfate [Proventil HFA] 90 mcg/actuation HFA aerosol inhaler 1 puff inhalation Q4-6H PRN (Reason: Shortness Of Breath) Qty: 6.7 5RF Rx Instructions: This script replaces the previous script. latanoprost 0.005 % drops EYE-BOTH (DME) DISABLED PARKING PERMIT See Rx Instructions .ROUTE .MEDSUPPLY Qty: 1 0RF Rx Instructions: I find this patient to be medically disabled and qualified for disabled parking as indicated, and signed, on the accompanying Disabled Parking Application for Individuals. furosemide 20 mg tablet 20 mg PO DAILY Qty: 90 1RF spironolactone 25 mg tablet 25 mg PO DAILY metoprolol succinate 100 mg tablet extended release 24 hr 100 mg PO BID Qty: 180 0RF amiodarone 200mg tablet See Rx Instructions PO BID Rx Instructions: take 2 tablets twice a day by mouth for 7 days then decrease to 1 tablet twice a day orally twice a day; rocklatan 0.00.005% drops EYE-RIGHT Rx Instructions: administer ! drop into right eye nightly clobetasol 0.05 % ointment 1 applic topical BEDTIME Qty: 30 1RF Rx Instructions: apply to affected area of hands, wear synthetic gloves at night over the ointment. Use for two weeks nightly then as needed but only twice weekly. omeprazole 20 mg Capsule,Delayed Release(Dr/Ec) 20 mg PO BID losartan [Cozaar] 25 mg tablet 12.5 mg PO DAILY Patient Comments: take 1/2 tablet by mouth daily cyclosporine [Restasis] 0.05 % Dropperette 1 drp OPHTHALMIC (EYE) BID Referrals: Shahab Vega DO [Primary Care Provider, Family Practice] Stand Alone Forms: Patient Portal/API
--- NOTE | 2024-09-19 11:45 | EKG_ITS ---
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
[2024-09-19 12:24] LABS: Add Manual Diff / Slide Review NO; Basophils Absolute Auto 0 /uL (0-100); Basophils Percent Auto 0.7 % (0-2); Eosinophils Absolute Auto 100 /uL (0-450); Eosinophils Percent Auto 1.4 % (2-4); Hematocrit 37.4 % (36-46); Lymphocytes Absolute Auto 600 /uL (1100-4500); Lymphocytes Percent Auto 15.1 % (25-40); Mean Corpuscular HGB Conc 34.7 % (30-36); Mean Corpuscular Hemoglobin 34.3 PG (26-34); Monocytes Absolute Auto 500 /uL (0-900); Monocytes Percent Auto 11.4 % (3-14); Neutrophils Absolute Auto 3000 /uL (1500-7000); Neutrophils Percent Auto 71.4 % (50-75); Platelet Count 169 X10^3/uL (150-400); Red Blood Cell Count 3.78 X10^6/uL (4.0-5.2); Red Cell Distribution Width 15.1 % (11.6-14.8); White Blood Cell Count 4.2 X10^3/uL (4.5-11.0)
[2024-09-19 12:25] LABS: Prothrombin Time 11.1 SECONDS (9.4-12.5)
[2024-09-19 12:28] LABS: PTT Partial Thromboplastin Tim 24 SECONDS (25.1-36.5)
--- NOTE | 2024-09-19 12:34 | PC.NURSE ---
Pt up to BR with FWW. Steady gait noted. Pt reports feeling SOB with activity. VSS. Family at bedside.
[2024-09-19 12:40] LABS: Alanine Aminotransferase 251 IU/L (<35); Albumin 4.2 g/dL (3.5-5.0); Albumin Globulin Ratio 1.6 (1.0-2.8); Alkaline Phosphatase 99 U/L (38-126); Aspartate Aminotransferase 172 IU/L (14-36); BUN Creatinine Ratio 19.2 (6-22); Bilirubin Total 1.4 mg/dL (0.2-1.3); Blood Urea Nitrogen 25 mg/dL (7-17); Calcium 9.1 mg/dL (8.4-10.2); Carbon Dioxide 28 mmol/L (22-32); Chloride 96 mmol/L (98-107); Creatine Kinase 80 U/L (30-135); Estimated Glomerular Filt Rate 40 mL/min (>60); Globulin 2.7 g/dL (1.7-4.1); Glucose 106 mg/dL (70-99); HEMOLYSIS 30 (0-50); Lipase 92 U/L (23-300); Magnesium 1.7 mg/dL (1.6-2.3); Potassium 3.9 mmol/L (3.4-5.1); Sodium 132 mmol/L (137-145); Total Protein 6.9 g/dL (6.3-8.2)
[2024-09-19 12:43] LABS: Appearance Urine UA CLEAR; Bilirubin Urine UA NEGATIVE (NEGATIVE); Color Urine UA YELLOW; Glucose Urine UA NEGATIVE (Negative); Ketones Urine UA NEGATIVE (NEGATIVE); Leukocyte Esterase Urine UA NEGATIVE (NEGATIVE); Nitrite Urine UA NEGATIVE (Negative); Occult Blood Urine UA NEGATIVE (Negative); Protein Urine UA NEGATIVE (Negative); Specific Gravity Urine UA <=1.005 (1.000-1.035); Urobilinogen Urine UA 0.2 E.U./dL (0.2)
[2024-09-19 12:50] LABS: NT-proBNP (BNP-Adult 18+) 960 pg/mL (<450)
[2024-09-19 12:53] LABS: pH Urine UA 5.5 (4.5-8.0)
[2024-09-19 12:54] LABS: Troponin I 0.015 ng/mL (0.01-0.034)
[2024-09-19 12:55] LABS: Bacteria Urine None Seen; Culture Indicated Urine Cult Not Indicated; RBC Urine None Seen (0-5/HPF); Squamous Epithelial Cell Urine None Seen (0-5/HPF); Urine Volume 10mL (spun); WBC Urine None Seen (0-5/HPF)
[2024-09-19 13:17] LABS: Influenza A - CEPHEID Flu A NEGATIVE (NEGATIVE); Influenza B - CEPHEID Flu B NEGATIVE (NEGATIVE); Respiratory Syncytial Virus Negative (Negative)
[2024-09-19 13:18] LABS: COVID-19 CEPHEID 4-PLEX PCR Negative (Negative)
== END 2024-09-19 14:30 | disposition home or self-care (01) ==
PROVIDERS: Emergency Provider Student in an Organized Health Care Education/Training Program; Family Provider Family Medicine; PCP Family Medicine
DX: R53.1 Weakness (principal); R06.02 Shortness of breath
CPT/HCPCS: 0241U; 36415; 70450; 71045; 71275; 80053; 81001; 82550; 83690; 83735; 83880; 84484; 85025; 85610; 85730; 93005; 99283; 99284; Q9967

== ENCOUNTER 2025-02-13 06:37 | Inpatient (IN) | payer MEDICARE, OTHER, SELFPAY ==
[2025-02-13] VITALS (30 sets, daily range): BP systolic 91–130; BP diastolic 54–104; PULSE 80–83; RESP 10–22; TEMP 35.3–36.2; O2SAT 88–100; BMI 29.6
--- NOTE | 2025-02-13 | PATH_ITS ---
[facility] Accession Number: [id number] No. of containers..01 Tissue . 01 Material submitted: . colon - COLON, TRANSVERSE . 01 Diagnosis: TRANSVERSE COLON, SEGMENTAL RESECTION: Segment of colon with focal features of mucosal ischemia associated with transmural suppurative inflammation, mural abscess and serositis. Background collagenous colitis. Diverticulosis. Negative for granulomas, dysplasia or malignancy. MRV 02/25/2025 1933 Local . 01 Electronically signed: . Jamari Hernandez MD, PhD, Pathologist NPI- [id number] . 01 Gross description: . Received in formalin, labeled with two patient identifiers and transverse colon, and consists of a 22.5 cm in length and 8.9 cm in circumference segment of large bowel. The bowel is stapled at both ends, and the margins are differentially inked black and blue. The serosa has a 6.5 x 2.5 cm, kennedy, dusky brown, focally hyperemic area which is located in the mid aspect of the transverse colon and further located 6.0 cm from the nearest resection margin. The remaining serosal surface is kennedy-pink, smooth, glistening, and otherwise unremarkable. The specimen is opened to show a slightly thickened and edematous bowel wall in the area of aforementioned serosal discoloration. The wall ranges from 0.2 cm up to 0.4 cm in thickness. There is no perforation appreciated in the discolored area. There is a 6.1 x 1.5 cm area of slightly ulcerated, hemorrhagic, and mildly exudative mucosa in the aforementioned discolored serosal area. In addition, there is a 5.0 x 2.5 cm area of hyperemic mucosa which is not associated with the aforementioned discolored serosal area. There is a 0.3 cm punctate area of mucosal hemorrhage which is sectioned to show an unremarkable underlying bowel wall. There are multiple diverticula ranging from 0.2 x 0.2 x 0.2 cm up to 0.4 x 0.3 x 0.3 cm. No perforations are appreciated. There is a moderate amount of attached pericolonic adipose tissue. The vascular pedicle is sectioned to show no thrombus or tumor clots appreciated. No lymph nodes are identified. There is an attached 25.0 x 10.5 x 1.8 cm portion of omental adipose tissue which is sectioned to show an unremarkable yellow, lobulated cut surface. Advertising [employer] Clerk sections are submitted as follows: A1-A2: Resection margins. A3: Kennedy, dusky, discolored bowel. A4: Kennedy, dusky, discolored bowel to adjacent uninvolved bowel. A5: Punctate area of mucosal hemorrhage. A6: Advertising Space Clerk sections of diverticula. A7: Vascular pedicle (shave margin). A8: Additional section of hyperemic mucosa. ([id number]) /FRR 02/14/2025 [facility] Local . 01 Pathologist provided ICD-10: R11.2, R10.9, K55.9, K52.89 . 01 CPT . 346021 Performed at: [address] [facility] [address], [place], [place] [id number] MD Jagdeep Zabala MD Phone: [phone]
--- NOTE | 2025-02-13 06:56 | ED.ABDPAIN ---
HPI - Abdominal Pain <Jairo Airas MD - Last Filed: 02/14/25 05:18> General Chief Complaint: Abdominal Pain Stated Complaint: N/V abd pain Time Seen by Provider: 02/13/25 06:47 Source: patient and EMS Mode of arrival: EMS History of Present Illness HPI narrative: 84-year-old female who started with intense abdominal pain around midnight that increasingly started getting worse. The pain is in the mid central area associated with some nausea and vomiting as well. Currently the patient is still in pain. Related Data Home Medications ?Medication ?Instructions ?Recorded ?Confirmed ascorbic acid (vitamin C) 500 mg 1,000 mg PO BID ##0 06/23/16 02/13/25 tablet cholecalciferol (vitamin D3) 50 1 tab PO BID ##0 06/23/16 02/13/25 mcg (2,000 unit) capsule (Vitamin D3) carboxymethylcellulose sodium 0.5 1 drp OPHTH TIDP PRN Dry Eye(S) ##0 06/28/16 02/13/25 % eye drops (Refresh Tears) cyclosporine 0.05 % eye drops in a 1 drp ophthalmic (eye) BID 03/21/19 02/13/25 dropperette (Restasis) omeprazole 20 mg capsule,delayed 20 mg PO BID 04/21/22 02/13/25 release latanoprost 0.005 % eye drops 1 drp EYE-BOTH .qhs 08/01/23 02/13/25 losartan 25 mg tablet (Cozaar) 12.5 mg PO DAILY 01/26/24 02/13/25 spironolactone 25 mg tablet 25 mg PO DAILY 02/03/24 02/13/25 Held on 08/31/24. Instructions: hyperkalemia rocklatan 0.00.005% drops See Rx Instructions EYE-RIGHT QPM 05/22/24 02/13/25 Previous Rx's ?Medication ?Instructions ?Recorded metoprolol succinate 100 mg 100 mg PO BID #180 tabs 03/08/24 tablet,extended release 24 hr clobetasol 0.05 % topical ointment 1 applic topical BEDTIME #30 grams 05/22/24 DISABLED PARKING PERMIT #1 ea 08/24/24 furosemide 20 mg tablet 20 mg PO DAILY #90 tabs 01/14/25 Allergies Allergy/AdvReac Type Severity Reaction Status Date / Time sulfamethoxazole (From AdvReac Intermediate Verified 01/10/25 12:14 Bactrim) trimethoprim (From Bactrim) AdvReac Intermediate Verified 01/10/25 12:14 Review of Systems <Jairo Arias MD - Last Filed: 02/14/25 05:18> Review of Systems ROS Unobtainable: All systems reviewed & are unremarkable except as noted in HPI and below Patient History <Jairo Arias MD - Last Filed: 02/14/25 05:18> Medical History (Updated 02/13/25 @ 09:38 by Honorio Montemayor MD) Hyperkalemia Mild cognitive impairment Systolic congestive heart failure, NYHA class 3 Lower extremity edema Transaminitis Hyponatremia Hallucinations, visual Ataxia Cellulitis Skin tear of right lower leg without complication Skin change Eczema of both hands Left shoulder strain Pyelonephritis Cystic mass of pancreas Acute cystitis (~03/2023) Sepsis (~03/2023) Weakness generalized Strain of abdominal wall Pure hypercholesterolemia GERD with esophagitis Left lower quadrant abdominal pain of unknown etiology Sacral region somatic dysfunction Pelvic somatic dysfunction Lumbar region somatic dysfunction Segmental and somatic dysfunction of abdomen and other regions Somatic dysfunction of abdominal region Food sticks on swallowing Chronic right hip pain Left low back pain HTN (hypertension) Left axis deviation LBBB (left bundle branch block) Tachycardia Dysphagia Weight loss counseling, encounter for Chronic cough Acne (~1949) Allergies (~1970) Carpal tunnel syndrome (~2011) Mumps Measles (~1947) Chicken pox (~1945) Retinal detachment (~1994) Partial blindness (~1994) Memory problem 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 Asthma (~1979) Surgical History History of appendectomy History of carpal tunnel surgery S/p reverse total shoulder arthroplasty Family History Mother Cancer Father Cancer Social History household members: none Smoking Status: Never smoker alcohol intake: current substance use type: does not use Smoking Status: Never smoker alcohol intake frequency: a few times a month Exam <Jairo Arias MD - Last Filed: 02/14/25 05:18> Narrative Exam Narrative: General: Patient appears to be in no acute distress, acting appropriately Head: normocephalic, atraumatic, HEENT: Pupils equal round reactive, eyes tracking well, neck supple, no JVD Heart: regular rate and rhythm, no murmurs, rubs, or gallops heard Lungs: clear to auscultation, no adventitious sounds Abdomen: Mildly tense and distended, painful to palpation in mid central area, decreased bowel sounds Neurological: no focal neurological signs, moving all extremities well, alert and oriented x3, Psych: good judgment ,good insight, mood is normal. Initial Vital Signs Initial Vital Signs: Vital Signs Pulse Rate 80 02/13/25 06:42 Pulse Oximetry 95 02/13/25 06:42 <Honorio Montemayor MD - Last Filed: 02/13/25 11:21> Initial Vital Signs Initial Vital Signs: Vital Signs Pulse Rate 80 02/13/25 06:42 Pulse Oximetry 95 02/13/25 06:42 Procedures <Jairo Arias MD - Last Filed: 02/14/25 05:18> Intubation Time of Intubation: 19:30 Time out performed: Yes sedative: Etomidate Mg Given: 25 paralytic: Rocuronium Mg Given: 70 Laryngoscope: fiber optic video scope ET Tube Size: 7.5 ET Tube Uncuffed: Yes Tube Secured Depth (cm): 22 Tube Secured Location: teeth Tube Placement Confirmation: Visualized tube passing through cords Patient Tolerated Procedure: Well Intubation Complications: hypoxia Additional Comments: Difficulty to oxygenate the patient beyond 70s percentage prior to intubation Course <Jairo Arias MD - Last Filed: 02/14/25 05:18> Orders Ordered: Discontinued Medications Acetaminophen (Acetaminophen 325 Mg Tablet) 650 mg PO Q6H PRN PRN Reason: Fever/Mild Pain (1-3) Hydrocodone Bitart/Acetaminophen (Hydrocodone/Acet 5/325 Tablet) 1 tab PO Q4H PRN PRN Reason: Pain, Moderate (4-6) Hydrocodone Bitart/Acetaminophen (Hydrocodone/Acet 5/325 Tablet) 2 tab PO Q4H PRN PRN Reason: Pain, Severe (7-10) Last Admin: 02/13/25 15:18 Dose: 2 tab Documented By: CHANELL Albuterol (Albuterol 2.5 Mg/3 Ml Neb (Adult)) 2.5 mg INH [id number] RISA Last Admin: 02/13/25 17:59 Dose: 2.5 mg Documented By: NEY Benzocaine (Benzocaine/Menthol 1 Karyna Pkt) 1 each PO Q4HR PRN PRN Reason: Sore Throat Last Admin: 02/13/25 17:50 Dose: 1 each Documented By: CHANELL Bupivacaine HCl (Bupivacaine 0.5% (Pf) 30 Ml Vial) 30 ml INJ NOW ONE Stop: 02/13/25 13:27 Last Admin: 02/13/25 13:26 Dose: 14 ml Documented By: Bupivacaine Liposome (Bupivacaine Liposome 266 Mg/20 Ml Vial) 266 mg INJ NOW ONE Stop: 02/13/25 13:26 Last Admin: 02/13/25 12:40 Dose: 266 mg Documented By: Enoxaparin Sodium (Enoxaparin 30 Mg/0.3 Ml Syringe) 30 mg SUBCUT DAILY RISA Enoxaparin Sodium (Enoxaparin 30 Mg/0.3 Ml Syringe) 30 mg SUBCUT DAILY RISA Last Admin: 02/13/25 17:50 Dose: 30 mg Documented By: CHANELL Fentanyl (Fentanyl 100 Mcg/2 Ml Inj) 0 mcg IV Q5MIN PRN PRN Reason: Pain, Severe (7-10) Last Admin: 02/13/25 13:55 Dose: 25 mcg Documented By: Admin: 02/13/25 13:46 Dose: 25 mcg Documented By: JINA Furosemide (Furosemide 20 Mg Tablet) 20 mg PO DAILY RISA Hydromorphone HCl (Hydromorphone 1 Mg/Ml Syringe) 0 mg IV Q5MIN PRN PRN Reason: Pain, Mild (1-3) Last Admin: 02/13/25 13:51 Dose: 0.25 mg Documented By: Admin: 02/13/25 13:33 Dose: 0.25 mg Documented By: Admin: 02/13/25 13:20 Dose: 0.25 mg Documented By: TP Hydromorphone HCl (Hydromorphone Hcl 0.5 Mg/0.5 Ml Syringe) 0.5 mg IV Q2H PRN PRN Reason: Pain, Severe (7-10) Last Admin: 02/13/25 17:28 Dose: 0.5 mg Documented By: CHANELL Hydroxyzine HCl (Hydroxyzine 50 Mg/Ml Inj) 25 mg IM NOW PRN PRN Reason: Pain, Mild (1-3) Sodium Chloride (Normal Saline 0.9%) 1,000 mls @ 1,000 mls/hr IV BOLUS ONE Stop: 02/13/25 08:07 Last Admin: 02/13/25 08:10 Dose: 500 mls/hr Documented By: GINETTE Ampicillin Sodium/Sulbactam (Sodium 3 gm/ Sodium Chloride) 100 mls @ 200 mls/hr IV NOW ONE Stop: 02/13/25 09:48 Last Admin: 02/13/25 10:58 Dose: 200 mls/hr Documented By: DANDRE Propofol (Diprivan) 1,000 mg in 100 mls @ 2.136 mls/hr IV TITRATE RISA; Protocol Last Titration: 02/13/25 19:42 Dose: 0 mcg/kg/min, 0 mls/hr Documented By: Admin: 02/13/25 19:40 Dose: 5 mcg/kg/min, 2.136 mls/hr Documented By: TALYA Ibuprofen (Ibuprofen 600 Mg Tablet) 600 mg PO Q6H PRN PRN Reason: Fever/Mild Pain (1-3) Losartan Potassium (Losartan 25 Mg Tablet) 12.5 mg PO DAILY [facility] Metoprolol Succinate (Metoprolol Er 50 Mg Tablet) 100 mg PO BID [facility] Morphine Sulfate (Morphine 4 Mg/Ml Inj) 4 mg IV NOW ONE Stop: 02/13/25 07:09 Last Admin: 02/13/25 08:33 Dose: Not Given Documented By: GINETTE Naloxone HCl (Naloxone 0.4 Mg/Ml Vial) 0.2 mg IV Q2MIN PRN PRN Reason: Opiate Reversal Ondansetron HCl (Ondansetron 4 Mg/2 Ml Inj) 4 mg IV NOW PRN PRN Reason: Nausea And Vomiting Ondansetron HCl (Ondansetron 4 Mg/2 Ml Inj) 4 mg IV NOW PRN PRN Reason: Nausea And Vomiting Ondansetron HCl (Ondansetron 4 Mg/2 Ml Inj) 4 mg IV Q8HR PRN PRN Reason: Nausea And Vomiting Oxycodone HCl (Oxycodone Ir 5 Mg Tablet) 5 mg PO PACUNOW PRN PRN Reason: Mild or moderate pain Pantoprazole Sodium (Pantoprazole Dr 20 Mg Tablet) 20 mg PO 0700,2100 [facility] Vital Signs Vital signs: Vital Signs - 8 hr 02/13/25 06:42 02/13/25 06:43 02/13/25 07:00 Temperature 96.2 F L Pulse Rate 80 81 Respiratory Rate 20 Blood Pressure 118/65 108/67 Pulse Oximetry 95 95 Oxygen Delivery Method Room Air 02/13/25 07:00 02/13/25 07:30 02/13/25 07:30 Temperature Pulse Rate 80 80 Respiratory Rate Blood Pressure 118/66 Pulse Oximetry 97 96 Oxygen Delivery Method 02/13/25 07:44 02/13/25 07:44 02/13/25 08:00 Temperature Pulse Rate 80 80 Respiratory Rate Blood Pressure 119/58 L Pulse Oximetry 94 97 Oxygen Delivery Method 02/13/25 08:03 02/13/25 08:03 02/13/25 08:30 Temperature Pulse Rate 80 80 Respiratory Rate Blood Pressure 100/60 Pulse Oximetry 96 96 Oxygen Delivery Method 02/13/25 09:00 02/13/25 09:30 Temperature Pulse Rate 80 80 Respiratory Rate Blood Pressure Pulse Oximetry 88 L 96 Oxygen Delivery Method <Honorio Montemayor MD - Last Filed: 02/13/25 11:21> Orders Ordered: Discontinued Medications Acetaminophen (Acetaminophen 325 Mg Tablet) 650 mg PO Q6H PRN PRN Reason: Fever/Mild Pain (1-3) Hydrocodone Bitart/Acetaminophen (Hydrocodone/Acet 5/325 Tablet) 1 tab PO Q4H PRN PRN Reason: Pain, Moderate (4-6) Hydrocodone Bitart/Acetaminophen (Hydrocodone/Acet 5/325 Tablet) 2 tab PO Q4H PRN PRN Reason: Pain, Severe (7-10) Last Admin: 02/13/25 15:18 Dose: 2 tab Documented By: CHANELL Albuterol (Albuterol 2.5 Mg/3 Ml Neb (Adult)) 2.5 mg INH [id number] RISA Last Admin: 02/13/25 17:59 Dose: 2.5 mg Documented By: NEY Benzocaine (Benzocaine/Menthol 1 Karyna Pkt) 1 each PO Q4HR PRN PRN Reason: Sore Throat Last Admin: 02/13/25 17:50 Dose: 1 each Documented By: CHANELL Bupivacaine HCl (Bupivacaine 0.5% (Pf) 30 Ml Vial) 30 ml INJ NOW ONE Stop: 02/13/25 13:27 Last Admin: 02/13/25 13:26 Dose: 14 ml Documented By: Bupivacaine Liposome (Bupivacaine Liposome 266 Mg/20 Ml Vial) 266 mg INJ NOW ONE Stop: 02/13/25 13:26 Last Admin: 02/13/25 12:40 Dose: 266 mg Documented By: Enoxaparin Sodium (Enoxaparin 30 Mg/0.3 Ml Syringe) 30 mg SUBCUT DAILY [facility] Enoxaparin Sodium (Enoxaparin 30 Mg/0.3 Ml Syringe) 30 mg SUBCUT DAILY RISA Last Admin: 02/13/25 17:50 Dose: 30 mg Documented By: CHANELL Fentanyl (Fentanyl 100 Mcg/2 Ml Inj) 0 mcg IV Q5MIN PRN PRN Reason: Pain, Severe (7-10) Last Admin: 02/13/25 13:55 Dose: 25 mcg Documented By: Admin: 02/13/25 13:46 Dose: 25 mcg Documented By: TP Furosemide (Furosemide 20 Mg Tablet) 20 mg PO DAILY [facility] Hydromorphone HCl (Hydromorphone 1 Mg/Ml Syringe) 0 mg IV Q5MIN PRN PRN Reason: Pain, Mild (1-3) Last Admin: 02/13/25 13:51 Dose: 0.25 mg Documented By: Admin: 02/13/25 13:33 Dose: 0.25 mg Documented By: Admin: 02/13/25 13:20 Dose: 0.25 mg Documented By: TP Hydromorphone HCl (Hydromorphone Hcl 0.5 Mg/0.5 Ml Syringe) 0.5 mg IV Q2H PRN PRN Reason: Pain, Severe (7-10) Last Admin: 02/13/25 17:28 Dose: 0.5 mg Documented By: CHANELL Hydroxyzine HCl (Hydroxyzine 50 Mg/Ml Inj) 25 mg IM NOW PRN PRN Reason: Pain, Mild (1-3) Sodium Chloride (Normal Saline 0.9%) 1,000 mls @ 1,000 mls/hr IV BOLUS ONE Stop: 02/13/25 08:07 Last Admin: 02/13/25 08:10 Dose: 500 mls/hr Documented By: GINETTE Ampicillin Sodium/Sulbactam (Sodium 3 gm/ Sodium Chloride) 100 mls @ 200 mls/hr IV NOW ONE Stop: 02/13/25 09:48 Last Admin: 02/13/25 10:58 Dose: 200 mls/hr Documented By: DANDRE Propofol (Diprivan) 1,000 mg in 100 mls @ 2.136 mls/hr IV TITRATE RISA; Protocol Last Titration: 02/13/25 19:42 Dose: 0 mcg/kg/min, 0 mls/hr Documented By: Admin: 02/13/25 19:40 Dose: 5 mcg/kg/min, 2.136 mls/hr Documented By: TALYA Ibuprofen (Ibuprofen 600 Mg Tablet) 600 mg PO Q6H PRN PRN Reason: Fever/Mild Pain (1-3) Losartan Potassium (Losartan 25 Mg Tablet) 12.5 mg PO DAILY [facility] Metoprolol Succinate (Metoprolol Er 50 Mg Tablet) 100 mg PO BID [facility] Morphine Sulfate (Morphine 4 Mg/Ml Inj) 4 mg IV NOW ONE Stop: 02/13/25 07:09 Last Admin: 02/13/25 08:33 Dose: Not Given Documented By: GINETTE Naloxone HCl (Naloxone 0.4 Mg/Ml Vial) 0.2 mg IV Q2MIN PRN PRN Reason: Opiate Reversal Ondansetron HCl (Ondansetron 4 Mg/2 Ml Inj) 4 mg IV NOW PRN PRN Reason: Nausea And Vomiting Ondansetron HCl (Ondansetron 4 Mg/2 Ml Inj) 4 mg IV NOW PRN PRN Reason: Nausea And Vomiting Ondansetron HCl (Ondansetron 4 Mg/2 Ml Inj) 4 mg IV Q8HR PRN PRN Reason: Nausea And Vomiting Oxycodone HCl (Oxycodone Ir 5 Mg Tablet) 5 mg PO PACUNOW PRN PRN Reason: Mild or moderate pain Pantoprazole Sodium (Pantoprazole Dr 20 Mg Tablet) 20 mg PO 0700,2100 [facility] Vital Signs Vital signs: Vital Signs - 8 hr 02/13/25 06:42 02/13/25 06:43 02/13/25 07:00 Temperature 96.2 F L Pulse Rate 80 81 Respiratory Rate 20 Blood Pressure 118/65 108/67 Pulse Oximetry 95 95 Oxygen Delivery Method Room Air 02/13/25 07:00 02/13/25 07:30 02/13/25 07:30 Temperature Pulse Rate 80 80 Respiratory Rate Blood Pressure 118/66 Pulse Oximetry 97 96 Oxygen Delivery Method 02/13/25 07:44 02/13/25 07:44 02/13/25 08:00 Temperature Pulse Rate 80 80 Respiratory Rate Blood Pressure 119/58 L Pulse Oximetry 94 97 Oxygen Delivery Method 02/13/25 08:03 02/13/25 08:03 02/13/25 08:30 Temperature Pulse Rate 80 80 Respiratory Rate Blood Pressure 100/60 Pulse Oximetry 96 96 Oxygen Delivery Method 02/13/25 09:00 02/13/25 09:30 Temperature Pulse Rate 80 80 Respiratory Rate Blood Pressure Pulse Oximetry 88 L 96 Oxygen Delivery Method MDM - Abdominal Pain <Jairo Arias MD - Last Filed: 02/14/25 05:18> Lab Data 02/13/25 07:00 02/13/25 07:00 Labs: Lab Results 02/13/25 02/13/25 Range/Units 07:00 08:30 WBC 4.6 (4.5-11.0) X10^3/uL RBC 3.80 L (4.0-5.2) X10^6/uL Hgb 13.5 (12.0-16.0) g/dL Hct 38.5 (36-46) % MCV 101.2 H (80-100) fL MCH 35.5 H (26-34) PG MCHC 35.1 (30-36) % RDW 15.1 H (11.6-14.8) % Plt Count 146 L (150-400) X10^3/uL Neut % (Auto) 87.0 H (50-75) % Lymph % (Auto) 5.7 L (25-40) % Mower % (Auto) 6.7 (3-14) % Eos % (Auto) 0.1 L (2-4) % Baso % (Auto) 0.5 (0-2) % Neut # (Auto) 4000 (2974-6540) /uL Lymph # (Auto) 300 L (5500-3886) /uL Mower # (Auto) 300 (0-900) /uL Eos # (Auto) 0 (0-450) /uL Baso # (Auto) 0 (0-100) /uL Sodium 127 L (137-145) mmol/L Potassium 3.9 (3.4-5.1) mmol/L Chloride 92 L (98-107) mmol/L Carbon Dioxide 26 (22-32) mmol/L BUN 30 H (7-17) mg/dL Creatinine 1.43 H (0.52-1.04) mg/dL Estimated GFR 36 L (>60) mL/min BUN/Creatinine Ratio 21.0 (6-22) Glucose 113 H (70-99) mg/dL Lactate 2.6 H (0.7-2.1) mmol/L Calcium 9.1 (8.4-10.2) mg/dL Total Bilirubin 1.2 (0.2-1.3) mg/dL AST 100 H (14-36) IU/L ALT 83 H (<35) IU/L Alkaline Phosphatase 83 (38-126) U/L Total Protein 7.4 (6.3-8.2) g/dL Albumin 4.6 (3.5-5.0) g/dL Globulin 2.8 (1.7-4.1) g/dL Albumin/Globulin Ratio 1.6 (1.0-2.8) Lipase 79 (23-300) U/L Procalcitonin 0.953 H (<0.5) ng/mL MDM Narrative Medical decision making narrative: 84-year-old female with no abdominal history presents with midabdominal pain that started around midnight and became more severe and sharp in nature. Suspect a potential small bowel obstruction and so abdominal labs and imaging were placed. signed out to Next ER physician Dr. Montemayor. 7:[address] Montemayor: s/o from dr arias, patient just seen by him. Labs CT imaging pending. Differential diagnosis includes bowel obstruction 7:[address] Montemayor: Spoke with patient laboratory studies and CT imaging ordered. Abdomen is tender to touch. Very diffuse tenderness. Decreased bowel sounds. Pain does appear out of proportion to exam. There is guarding. MDM After history and exam, morphine Zofran normal saline CBC CMP urinalysis CT abdomen pelvis Differential considered: Includes but not limited to bowel obstruction volvulus intussusception ischemic bowel cholelithiasis cholecystitis pancreatitis Medical records reviewed: No recent visit for this complaint Lab Test results independently reviewed as above. Pertinent findings: WBC 4.6 hemoglobin 13.5 sodium 127/appears to be baseline sodium level for patient. Potassium 3.9 BUN 30 creatinine 1.43 this appears to be patient's baseline renal function. GFR 36 again baseline, AST 100 ALT 83, this appears to again be patient baseline liver function Lactic acid 2.6 procalcitonin 0.95 Imaging studies independently reviewed: CT abdomen pelvis Consultations: 8:[address] Davila, radiologist, the CT concern for ischemic bowel. We are pain she General surgery, Dr. Moody 8:21 a.m.. I spoke with Dr. Moody, general surgeon, exam and CT concerning for ischemic bowel reviewed with him, he just started a surgical case and he will see patient right away after completion. 9:[address] Moody at bedside. He will take patient to the OR for exploratory surgery. He has reviewed this with patient. Eleven 7:00 a.m.. I spoke with hospitalist, dr viera, he will follow in consult Re-evaluations: . 9:40 a.m.. Patient understands need for urgent exploratory surgery for possible injury to the bowels. Discussion: IV contrast use for CT imaging. Appropriate admission for surgical evaluation and intervention. Diagnosis: Abdominal pain 7pm: I Dr. Arias was called urgently to the floor to do an emergent intubation due to the patient decompensating. <Honorio Montemayor MD - Last Filed: 02/13/25 11:21> Lab Data Labs: Lab Results 02/13/25 02/13/25 Range/Units 07:00 08:30 WBC 4.6 (4.5-11.0) X10^3/uL RBC 3.80 L (4.0-5.2) X10^6/uL Hgb 13.5 (12.0-16.0) g/dL Hct 38.5 (36-46) % MCV 101.2 H (80-100) fL MCH 35.5 H (26-34) PG MCHC 35.1 (30-36) % RDW 15.1 H (11.6-14.8) % Plt Count 146 L (150-400) X10^3/uL Neut % (Auto) 87.0 H (50-75) % Lymph % (Auto) 5.7 L (25-40) % Mower % (Auto) 6.7 (3-14) % Eos % (Auto) 0.1 L (2-4) % Baso % (Auto) 0.5 (0-2) % Neut # (Auto) 4000 (6030-1349) /uL Lymph # (Auto) 300 L (8597-8163) /uL Mower # (Auto) 300 (0-900) /uL Eos # (Auto) 0 (0-450) /uL Baso # (Auto) 0 (0-100) /uL Sodium 127 L (137-145) mmol/L Potassium 3.9 (3.4-5.1) mmol/L Chloride 92 L (98-107) mmol/L Carbon Dioxide 26 (22-32) mmol/L BUN 30 H (7-17) mg/dL Creatinine 1.43 H (0.52-1.04) mg/dL Estimated GFR 36 L (>60) mL/min BUN/Creatinine Ratio 21.0 (6-22) Glucose 113 H (70-99) mg/dL Lactate 2.6 H (0.7-2.1) mmol/L Calcium 9.1 (8.4-10.2) mg/dL Total Bilirubin 1.2 (0.2-1.3) mg/dL AST 100 H (14-36) IU/L ALT 83 H (<35) IU/L Alkaline Phosphatase 83 (38-126) U/L Total Protein 7.4 (6.3-8.2) g/dL Albumin 4.6 (3.5-5.0) g/dL Globulin 2.8 (1.7-4.1) g/dL Albumin/Globulin Ratio 1.6 (1.0-2.8) Lipase 79 (23-300) U/L Procalcitonin 0.953 H (<0.5) ng/mL Imaging Data CT scan - abdomen/pelvis: Radiologist's Impression: [place] [address] CT Scan Report Signed Patient: Wendy Mullen MR#: [id number] : 1940 Acct:[id number] Age/Sex: 84 / F Date of Service: 02/13/25 Loc: ED Accession Number: [id number] Procedure: CT abdomen pelvis w con Ordering Provider: Jairo Arias MD PROCEDURE: CT ABDOMEN PELVIS W CON INDICATIONS: abdominal pain TECHNIQUE: After the administration of intravenous contrast, axial sections acquired from the lung bases to the pubic symphysis. Coronal and sagittal reformats were performed. For radiation dose reduction, the following was used: automated exposure control, adjustment of mA and/or kV according to patient size. COMPARISON: [facility], CT, CT KUB, 04/01/2023, 20:52. [facility], CT, CT ANGIO CHEST PE PROTOCOL, 09/19/2024, 12:59. FINDINGS: Image quality: Diagnostic. Lower Chest: AICD. LAD stents. Cardiomegaly. ABDOMEN: Liver: No solid mass. Gallbladder: No radiopaque gallstones or wall thickening. Biliary ducts: No biliary dilation. Pancreas: No ductal dilation. Spleen: Size is within normal limits. Adrenal Glands: No adrenal nodules. Kidneys and Ureters: No hydronephrosis. No solid mass. No complex renal cystic lesion which requires follow up. There is a left renal pelvic stone measuring 5 mm. Stomach and Bowel: Short-segment markedly abnormal appearing distal transverse colon with marked wall thickening and edema and possible tiny amount of pneumatosis. Findings are suspicious for a short segment of focal bowel ischemia. Also possible is severe focal diverticulitis. There is a small amount of inflammatory fluid immediately subjacent to this loop. No free air. Diverticulosis. Peritoneum: Trace pelvic ascites. No free air. Ventral Wall: No significant ventral hernia. Abdominal Nodes: No retroperitoneal or mesenteric adenopathy by size criteria. Vessels: Aorta and inferior vena cava are normal in size. PELVIS: Pelvic Organs: Calcified uterine fibroids.. Bladder: No bladder wall thickening, accounting for underdistention. Pelvic Nodes: No enlarged lymph nodes. Miscellaneous: No inguinal hernias are seen. Bones: No aggressive osseous abnormality. Moderate to severe dextrocurvature of the lumbar spine. Multiple chronic compressions. IMPRESSION: 1. Short segment of markedly abnormal distal transverse colon. Consider focal ischemic bowel versus severe focal diverticulitis. Question of trace intramural air. 2. Left renal pelvic stone. 3. Moderately severe scoliotic curvature, numerous chronic compressions. 4. Cardiomegaly, coronary stents, AICD. Comment: Acute findings were discussed with Dr. Montemayor on 02/13/2025 at 0818 hours Dictated by: Sergey Davila M.D. on 02/13/2025 at 8:05 Approved by: Sergey Davila M.D. on 02/13/2025 at 8:15 MDM Narrative Medical decision making narrative: 84-year-old female with no abdominal history presents with midabdominal pain that started around midnight and became more severe and sharp in nature. Suspect a potential small bowel obstruction and so abdominal labs and imaging were placed. signed out to Next ER physician Dr. Montemayor. 7:[address] Montemayor: s/o from dr arias, patient just seen by him. Labs CT imaging pending. Differential diagnosis includes bowel obstruction 7:[address] Montemayor: Spoke with patient laboratory studies and CT imaging ordered. Abdomen is tender to touch. Very diffuse tenderness. Decreased bowel sounds. Pain does appear out of proportion to exam. There is guarding. MDM After history and exam, morphine Zofran normal saline CBC CMP urinalysis CT abdomen pelvis Differential considered: Includes but not limited to bowel obstruction volvulus intussusception ischemic bowel cholelithiasis cholecystitis pancreatitis Medical records reviewed: No recent visit for this complaint Lab Test results independently reviewed as above. Pertinent findings: WBC 4.6 hemoglobin 13.5 sodium 127/appears to be baseline sodium level for patient. Potassium 3.9 BUN 30 creatinine 1.43 this appears to be patient's baseline renal function. GFR 36 again baseline, AST 100 ALT 83, this appears to again be patient baseline liver function Lactic acid 2.6 procalcitonin 0.95 Imaging studies independently reviewed: CT abdomen pelvis Consultations: 8:[address] Davila, radiologist, the CT concern for ischemic bowel. We are pain she General surgery, Dr. Moody 8:21 a.m.. I spoke with Dr. Moody, general surgeon, exam and CT concerning for ischemic bowel reviewed with him, he just started a surgical case and he will see patient right away after completion. 9:[address] Moody at bedside. He will take patient to the OR for exploratory surgery. He has reviewed this with patient. Eleven 7:00 a.m.. I spoke with hospitalist, dr viera, he will follow in consult Re-evaluations: . 9:40 a.m.. Patient understands need for urgent exploratory surgery for possible injury to the bowels. Discussion: IV contrast use for CT imaging. Appropriate admission for surgical evaluation and intervention. Diagnosis: Abdominal pain Discharge Plan Departure Patient Disposition: Admitted to Surgery Clinical Impression: Abdominal pain Qualifiers: Abdominal location: generalized Qualified Code(s): R10.84 - Generalized abdominal pain Admit Date/Time: 02/13/25 09:36 Admit Provider: Chapito Moody
[2025-02-13 07:12] LABS: Add Manual Diff / Slide Review NO; Hematocrit 38.5 % (36-46); Hemoglobin 13.5 g/dL (12.0-16.0); Lymphocytes Absolute Auto 300 /uL (1100-4500); Mean Corpuscular HGB Conc 35.1 % (30-36); Mean Corpuscular Hemoglobin 35.5 PG (26-34); Mean Corpuscular Volume 101.2 fL (80-100); Platelet Count 146 X10^3/uL (150-400)
[2025-02-13 07:21] LABS: Alanine Aminotransferase 83 IU/L (<35); Albumin 4.6 g/dL (3.5-5.0); Albumin Globulin Ratio 1.6 (1.0-2.8); Alkaline Phosphatase 83 U/L (38-126); Blood Urea Nitrogen 30 mg/dL (7-17); Calcium 9.1 mg/dL (8.4-10.2); Carbon Dioxide 26 mmol/L (22-32); Chloride 92 mmol/L (98-107); Estimated Glomerular Filt Rate 36 mL/min (>60); Globulin 2.8 g/dL (1.7-4.1); Glucose 113 mg/dL (70-99); HEMOLYSIS 19 (0-50); Lipase 79 U/L (23-300); Potassium 3.9 mmol/L (3.4-5.1); Sodium 127 mmol/L (137-145); Total Protein 7.4 g/dL (6.3-8.2)
--- NOTE | 2025-02-13 07:35 | DI.CT.S_ITS ---
PROCEDURE: CT ABDOMEN PELVIS W CON INDICATIONS: abdominal pain TECHNIQUE: After the administration of intravenous contrast, axial sections acquired from the lung bases to the pubic symphysis. Coronal and sagittal reformats were performed. For radiation dose reduction, the following was used: automated exposure control, adjustment of mA and/or kV according to patient size. COMPARISON: [facility], CT, CT KUB, 04/01/2023, 20:52. [facility], CT, CT ANGIO CHEST PE PROTOCOL, 09/19/2024, 12:59. FINDINGS: Image quality: Diagnostic. Lower Chest: AICD. LAD stents. Cardiomegaly. ABDOMEN: Liver: No solid mass. Gallbladder: No radiopaque gallstones or wall thickening. Biliary ducts: No biliary dilation. Pancreas: No ductal dilation. Spleen: Size is within normal limits. Adrenal Glands: No adrenal nodules. Kidneys and Ureters: No hydronephrosis. No solid mass. No complex renal cystic lesion which requires follow up. There is a left renal pelvic stone measuring 5 mm. Stomach and Bowel: Short-segment markedly abnormal appearing distal transverse colon with marked wall thickening and edema and possible tiny amount of pneumatosis. Findings are suspicious for a short segment of focal bowel ischemia. Also possible is severe focal diverticulitis. There is a small amount of inflammatory fluid immediately subjacent to this loop. No free air. Diverticulosis. Peritoneum: Trace pelvic ascites. No free air. Ventral Wall: No significant ventral hernia. Abdominal Nodes: No retroperitoneal or mesenteric adenopathy by size criteria. Vessels: Aorta and inferior vena cava are normal in size. PELVIS: Pelvic Organs: Calcified uterine fibroids.. Bladder: No bladder wall thickening, accounting for underdistention. Pelvic Nodes: No enlarged lymph nodes. Miscellaneous: No inguinal hernias are seen. Bones: No aggressive osseous abnormality. Moderate to severe dextrocurvature of the lumbar spine. Multiple chronic compressions. IMPRESSION: 1. Short segment of markedly abnormal distal transverse colon. Consider focal ischemic bowel versus severe focal diverticulitis. Question of trace intramural air. 2. Left renal pelvic stone. 3. Moderately severe scoliotic curvature, numerous chronic compressions. 4. Cardiomegaly, coronary stents, AICD. Comment: Acute findings were discussed with Dr. Montemayor on 02/13/2025 at 0818 hours Dictated by: Sergey Davila M.D. on 02/13/2025 at 8:05 Approved by: Sergey Davila M.D. on 02/13/2025 at 8:15
[2025-02-13] MEDS: SODIUM CHLORIDE 0.9% 1,000 ML 500 ML IV (08:10)
[2025-02-13 08:45] LABS: Procalcitonin 0.953 ng/mL (<0.5)
[2025-02-13 08:49] LABS: Lactate (Lactic Acid) 2.6 mmol/L (0.7-2.1)
--- NOTE | 2025-02-13 09:39 | PM.CN.IH.1 ---
History of Present Illness Consult details Date Patient Seen: 02/13/25 Time Patient Seen: 09:39 Chief complaint: N/V abd pain Narrative: Patricia is an 84-year-old woman who presented to the ER with several hours of sudden onset abdominal pain. She had never had a similar episode before. CT scan showed marked thickening of the distal transverse colon concerning for ischemia. Her prior surgical history includes an open appendectomy at age 14. She sees a lockstitch waistline joiner and has a pacemaker and a defibrillator. Meds Home Medications and Allergies Home Medications ?Medication ?Instructions ?Recorded ?Confirmed ?Type ascorbic acid (vitamin C) 500 mg 1,000 mg PO BID ##0 06/23/16 01/10/25 History tablet cholecalciferol (vitamin D3) 50 1 tab PO BID ##0 06/23/16 01/10/25 History mcg (2,000 unit) capsule (Vitamin D3) carboxymethylcellulose sodium 0.5 1 drp OPHTH TIDP PRN Dry Eye(S) ##0 06/28/16 01/10/25 History % eye drops (Refresh Tears) cyclosporine 0.05 % eye drops in a 1 drp ophthalmic (eye) BID 03/21/19 01/10/25 History dropperette (Restasis) omeprazole 20 mg capsule,delayed 20 mg PO BID 04/21/22 01/10/25 History release latanoprost 0.005 % eye drops drp EYE-BOTH 08/01/23 01/10/25 History losartan 25 mg tablet (Cozaar) 12.5 mg PO DAILY 01/26/24 01/10/25 History spironolactone 25 mg tablet 25 mg PO DAILY 02/03/24 01/10/25 History Held on 08/31/24. Instructions: hyperkalemia metoprolol succinate 100 mg 100 mg PO BID #180 tabs 03/08/24 01/10/25 Rx tablet,extended release 24 hr clobetasol 0.05 % topical ointment 1 applic topical BEDTIME #30 grams 05/22/24 01/10/25 Rx rocklatan 0.00.005% drops EYE-RIGHT 05/22/24 01/10/25 History DISABLED PARKING PERMIT #1 ea 08/24/24 01/10/25 Rx furosemide 20 mg tablet 20 mg PO DAILY #90 tabs 01/14/25 Rx Allergies Allergy/AdvReac Type Severity Reaction Status Date / Time sulfamethoxazole (From AdvReac Intermediate Verified 01/10/25 12:14 Bactrim) trimethoprim (From Bactrim) AdvReac Intermediate Verified 01/10/25 12:14 Exam Vital Signs (past 8 hours): - 02/13/25 06:43 Temperature 96.2 F L Pulse Rate 81 Respiratory Rate 20 Blood Pressure 118/65 Pulse Oximetry 95 Oxygen Delivery Method Room Air Oxygen Delivery Method Room Air Narrative Exam Narrative: Abdomen is distended and diffusely tender to palpation Low midline scar Objective Labs 02/13/25 07:00 02/13/25 07:00 Labs: Laboratory Results - last 24 hr 02/13/25 02/13/25 07:00 08:30 WBC 4.6 RBC 3.80 L Hgb 13.5 Hct 38.5 MCV 101.2 H MCH 35.5 H MCHC 35.1 RDW 15.1 H Plt Count 146 L Neut % (Auto) 87.0 H Lymph % (Auto) 5.7 L Blanco % (Auto) 6.7 Eos % (Auto) 0.1 L Baso % (Auto) 0.5 Neut # (Auto) 4000 Lymph # (Auto) 300 L Blanco # (Auto) 300 Eos # (Auto) 0 Baso # (Auto) 0 Sodium 127 L Potassium 3.9 Chloride 92 L Carbon Dioxide 26 BUN 30 H Creatinine 1.43 H Estimated GFR 36 L BUN/Creatinine Ratio 21.0 Glucose 113 H Lactate 2.6 H Calcium 9.1 Total Bilirubin 1.2 AST 100 H ALT 83 H Alkaline Phosphatase 83 Total Protein 7.4 Albumin 4.6 Globulin 2.8 Albumin/Globulin Ratio 1.6 Lipase 79 Procalcitonin 0.953 H [facility] Medical History (Updated 02/13/25 @ 09:38 by Honorio Montemayor MD) Hyperkalemia Mild cognitive impairment Systolic congestive heart failure, NYHA class 3 Lower extremity edema Transaminitis Hyponatremia Hallucinations, visual Ataxia Cellulitis Skin tear of right lower leg without complication Skin change Eczema of both hands Left shoulder strain Pyelonephritis Cystic mass of pancreas Acute cystitis (~03/2023) Sepsis (~03/2023) Weakness generalized Strain of abdominal wall Pure hypercholesterolemia GERD with esophagitis Left lower quadrant abdominal pain of unknown etiology Sacral region somatic dysfunction Pelvic somatic dysfunction Lumbar region somatic dysfunction Segmental and somatic dysfunction of abdomen and other regions Somatic dysfunction of abdominal region Food sticks on swallowing Chronic right hip pain Left low back pain HTN (hypertension) Left axis deviation LBBB (left bundle branch block) Tachycardia Dysphagia Weight loss counseling, encounter for Chronic cough Acne (~1949) Allergies (~1970) Carpal tunnel syndrome (~2011) Mumps Measles (~194) Chicken pox (~1945) Retinal detachment (~1994) Partial blindness (~1994) Memory problem 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 Asthma (~1979) Surgical History History of appendectomy History of carpal tunnel surgery S/p reverse total shoulder arthroplasty Family History Mother Cancer Father Cancer Social History household members: other Tobacco & Substance Use Smoking Status: Never smoker alcohol intake: current substance use type: does not use Assessment & Plan Assessment and plan (1) Abdominal pain: Qualifiers: Abdominal location: generalized Qualified Code(s): R10.84 - Generalized abdominal pain Status: Acute Plan I explained to Wendy that I am concerned about an ischemic segment of her colon based on her presentation, exam and CT scan. I recommended starting with a diagnostic laparoscopy. I will we will get the transverse colon and if it appears ischemic I will most likely convert to an exploratory laparotomy with colon resection and primary anastomosis if the remaining bowel looks healthy and viable. I also mentioned the possibility that she might need a colostomy or ileostomy. She would like to proceed. Time-Based Coding :: [TOTAL MINUTES] spent with patient and on the chart (including review of chart, obtaining history, exam, reviewing outside data, placing orders, documenting exam and treatment plan, and counseling patient) on [DATE]. PROFEE Charge Codes Inpatient or Observation consultation: [id number]
[2025-02-13 10:12] LABS: Reflexed Lactate in 2 Hours Y
[2025-02-13] MEDS: AMPICILLIN/SULBACTAM 3 GM 3 GM in SODIUM CHLORIDE 0.9% 100 ML IV (10:58)
--- NOTE | 2025-02-13 11:22 | PM.AN.INVM ---
Invasive Monitor Note Procedure Procedure: Arterial Catheter Insertion Start Time: :15 Stop Time: :19 Indication: Intraoperative Hemodynamic Monitoring Timeout: :15 Barrier Precautions Utilized: Cap, Mask, Hand Hygiene, 2% Chlorhexidine Cutaneous Antisepsis and Maintenance of Sterile Field Vessel Utilized: Radial Artery: Left Lines Catheters Utilized: 20 G Arrow Arterial Catheter Insertion Site Care: Sterile Occlusive Dressing Applied Ultrasound Ultrasound Guidance Utilized: Yes Ultrasound was used to identify the vessel. Assessed vessel was patent.: Radial Artery Ultrasound was used to visualize vascular needle entry into the: Radial Artery Limited exam reveals anatomically normal vessel with no apparent abnormal findings.: Yes Permanent ultrasound image obtained and interpretation documented.: No Complications Complications: none
--- NOTE | 2025-02-13 12:28 | SUR.OPER ---
Supine on padded OR bed, head on pillow, left arm secured on padded arm boards at <90 degrees abduction, right arm tucked at patient side, gel pad placed for ulnar nerve protection legs uncrossed, pillow x 1 under bilateral knees, safety belt at thigh, tape over blanket over lower legs. all positioning approved and directed by surgeon prior to start of procedure.
--- NOTE | 2025-02-13 12:52 | PM.OP.1 ---
Operative Date/Time/Diagnoses Date of procedure: 02/13/25 Time of procedure: 12:52 Pre-op diagnosis: Ischemic colitis Post-op diagnosis: same Procedure & Clinicians Procedure: Laparoscopic-assisted transverse colectomy Same procedure(s) as scheduled: Yes Surgeon: Chapito Moody Assisted?: Yes Housing Assistant: Jonh Wagoner Anesthesia Type: General Operative Notes Findings: 6-8 cm focal segment of ischemia of the distal transverse colon Applied: none Estimated Blood Loss (mL): 25 Procedure in detail: The patient is an 84-year-old woman who presented with sudden severe abdominal pain and an abnormal CT scan showing thickening of the distal transverse colon concerning for ischemic colitis. She was consented for diagnostic laparoscopy and possible bowel resection. The patient was given Unasyn. The patient was brought to the operating room, placed on the table in the supine position and general endotracheal anesthesia was induced. A Latham catheter was placed a nursing and a left arterial line was placed by anesthesia. The abdomen was prepped and draped in the usual fashion and a time-out was performed. We created a 1 cm supraumbilical incision. We performed a cut down and a established pneumoperitoneum with the Tran technique. The camera was inserted and there was no evidence of an injury from the entry. Next a 5 mm port was placed in the subxiphoid position, and two additional 5 mm ports were placed in the left lower quadrant. The omentum was retracted cephalad revealing segment of purplish transverse colon a proximally 6-8 cm in length. The discoloration was well-defined and located along the anterior mesenteric aspect of the colon. It did not extend circumferentially. We then mobilized the splenic flexure down to about the junction of the descending colon sigmoid colon. The omentum was divided to allow the entire distal transverse colon to reach the midline. We then released the pneumoperitoneum and created a 9 cm upper midline incision. The Nam wound retractor was placed. The distal transverse colon and proximal descending colon were brought out through the midline wound. We then created a [id number] functional end-to-end anastomosis using the 75 mm linear cutting stapler using blue loads. The common enterotomy was closed in 2 layers using a running 3-0 PDS followed by multiple interrupted imbricating 3-0 silk sutures. We replaced the bowel back into the abdomen. The omentum was draped over the bowel. We closed the upper midline incision with 0 PDS in a running fashion. We reestablished pneumoperitoneum to take one last look at the abdomen. A few blood clots were suctioned. We then desufflated the abdomen and closed the skin incisions with farheen. The patient was awakened and brought to recovery room. Specimen: Distal transverse colon Complications: none Post-operative Condition: stable Disposition: PACU
[2025-02-13] MEDS: fentaNYL 100 MCG/2 ML INJ IV ×2 (13:46→13:55)
[2025-02-13 15:20] LABS: Lactate 2HR (Lactic Acid Rflx) 3.2 mmol/L (0.7-2.1)
--- NOTE | 2025-02-13 17:07 | DI.RAD.S_ITS ---
PROCEDURE: XR CHEST 1V INDICATIONS: Short of breath TECHNIQUE: One view of the chest was acquired. COMPARISON: [facility], CR, XR CHEST 1V, 09/19/2024, 12:08. FINDINGS: Surgical changes and devices: Bilateral shoulder arthroplasty hardware is partially seen. An AICD is seen. The leads are seen in stable positions. Lungs and pleura: Lungs are clear. No pleural effusions or pneumothorax. Mediastinum: The cardiac contours are mildly enlarged. The aorta demonstrates calcification and tortuosity. Bones and chest wall: No suspicious bony lesions. Age-appropriate bony degenerative changes are seen. Overlying soft tissues appear unremarkable. IMPRESSION: Low lung volumes, without a focal pulmonary abnormality seen by plain film. Mild cardiomegaly. Postoperative and degenerative changes are seen. Dictated by: Jaycob Chase M.D. on 02/13/2025 at 16:53 Approved by: Jaycob Chase M.D. on 02/13/2025 at 16:55
[2025-02-13] MEDS: ENOXAPARIN 30 MG/0.3 ML SYRINGE SUBCUT (17:50)
[2025-02-13] MEDS: BENZOCAINE/MENTHOL 1 LOZ PKT 1 EACH PO (17:50)
[2025-02-13] MEDS: ALBUTEROL 2.5 MG/3 ML NEB (ADULT) INH (17:59)
--- NOTE | 2025-02-13 18:34 | PC.NURSE ---
Patient arrived to room 214 at 1430 from PACU. Admission assessment completed by flolorne Virgen. Patient is placed on 02 4 LNC for shallow breathing and SOB. She is instructed to use IS. She is encouraged to use pillow to splint abdominal incision to cough to clear dry phlegm. She continues to complain of not being able to breathe, and noted upper airway wheezing. MD Moody arrived to bedside. RT eval and treat ordered. CXRAY ordered and nebulizer. She continues to have dry mucous weak cough. medicated for pain as noted breaths are shallow from abdominal pain. Hospitalist consulted and assessed patient. Discussed plan of care with Niece and niece's over the phone. Continuous monitoring.
--- NOTE | 2025-02-13 19:47 | PC.NURSE ---
At approximately 1855 patient continues to have audible wheezing in upper airway. RN encouraged patient to cough and attempted to use yankeur suction to have expectorate mucous plug. RT called to bedside STAT at 1900 as patient began having respiratory distress. MD Hannah called to bedside and instructed RN to call genaro eisenberg. Genaro eisenberg called.
[2025-02-13 20:04] LABS: Allen Test for ABG Passed? Positive; Blood Gas Collection Site Left Radial; Delivery System Adult Ventilator; HCO3 ABG 10 mmol/L (23-27); Oxygen Saturation ABG 100 % (95-100); PCO2 ABG 19.1 mmHg (35-45); PEEP 5; PO2 ABG 380 mmHg (80-100); TCO2 ABG 9 mmol/L (23-27)
--- NOTE | 2025-02-13 20:05 | PC.NURSE ---
At 1934H patient was transferred from acute care unit Rm 214 to ICU Rm 231 post code blue, intubated, monitor showing atrioventicular pacing, at 1945 another code blue was called d/t absence of pulse with atrioventricular paced rhythm still showing on the monitor, at 2005 hours resuscitation effort called off, time of declared at 2004, jan Chen is at bedside. Code blue medication administration are recorded in Code Blue Flowsheet.
--- NOTE | 2025-02-16 15:29 | PM.HP.1 ---
History of Present Illness History of Present Illness Date Patient Seen: 02/13/25 Chief complaint: Infarcted bowel with nausea vomiting abdominal lamine Narrative: Chief complaint: Infarcted bowel with nausea vomiting abdominal pain History of present illness: A 84-year-old female presented to the ER with sudden onset abdominal pain with CT findings concerning for bowel ischemia. Patient taken to the operating room with operative finding of ischemic bowel that was resected and reanastomosed by surgery on-call. Patient arrived to the floor postoperatively. My initial encounter was at this point with the patient a right postoperatively. Patient was unable to give history as she was still sedated from anesthesia Review of systems: Unable to provide due to sedation Physical exam: Elderly female postoperatively did not appear in acute distress HEENT pale pallor Heart irregular Lungs diminished breath sounds Abdomen is diffusely tender no bowel sounds present Extremities no edema Assessment and plan: Patient with infarcted bowel status post resection reanastomosis Guarded prognosis as this was caused by arterial embolism with potential for multiple other visceral emboli Chronic atrial fibrillation Likely source of cardiogenic emboli Unable to anticoagulate due to fresh surgical resection and reanastomosis DVT prophylaxis Enoxaparin Time based billin minutes were involved in the management of the care of this patient as this patient was subsequently had cardiac arrest acute Code Blue with 2 respirations of circulation and then managed by the author [facility] Medical History (Updated 02/13/25 @ 09:38 by Honorio Montemayor MD) Hyperkalemia Mild cognitive impairment Systolic congestive heart failure, NYHA class 3 Lower extremity edema Transaminitis Hyponatremia Hallucinations, visual Ataxia Cellulitis Skin tear of right lower leg without complication Skin change Eczema of both hands Left shoulder strain Pyelonephritis Cystic mass of pancreas Acute cystitis (~03/2023) Sepsis (~03/2023) Weakness generalized Strain of abdominal wall Pure hypercholesterolemia GERD with esophagitis Left lower quadrant abdominal pain of unknown etiology Sacral region somatic dysfunction Pelvic somatic dysfunction Lumbar region somatic dysfunction Segmental and somatic dysfunction of abdomen and other regions Somatic dysfunction of abdominal region Food sticks on swallowing Chronic right hip pain Left low back pain HTN (hypertension) Left axis deviation LBBB (left bundle branch block) Tachycardia Dysphagia Weight loss counseling, encounter for Chronic cough Acne (~1949) Allergies (~1970) Carpal tunnel syndrome (~2011) Mumps Measles (~1947) Chicken pox (~1945) Retinal detachment (~1994) Partial blindness (~1994) Memory problem 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 Asthma (~1979) Surgical History History of appendectomy History of carpal tunnel surgery S/p reverse total shoulder arthroplasty Family History Mother Cancer Father Cancer Social History household members: none Smoking Status: Never smoker alcohol intake: current substance use type: does not use Meds Home Medications and Allergies Home Medications ?Medication ?Instructions ?Recorded ?Confirmed ?Type ascorbic acid (vitamin C) 500 mg 1,000 mg PO BID ##0 06/23/16 02/13/25 History tablet cholecalciferol (vitamin D3) 50 1 tab PO BID ##0 06/23/16 02/13/25 History mcg (2,000 unit) capsule (Vitamin D3) carboxymethylcellulose sodium 0.5 1 drp OPHTH TIDP PRN Dry Eye(S) ##0 06/28/16 02/13/25 History % eye drops (Refresh Tears) cyclosporine 0.05 % eye drops in a 1 drp ophthalmic (eye) BID 03/21/19 02/13/25 History dropperette (Restasis) omeprazole 20 mg capsule,delayed 20 mg PO BID 04/21/22 02/13/25 History release latanoprost 0.005 % eye drops 1 drp EYE-BOTH .qhs 08/01/23 02/13/25 History losartan 25 mg tablet (Cozaar) 12.5 mg PO DAILY 01/26/24 02/13/25 History spironolactone 25 mg tablet 25 mg PO DAILY 02/03/24 02/13/25 History Held on 08/31/24. Instructions: hyperkalemia metoprolol succinate 100 mg 100 mg PO BID #180 tabs 03/08/24 02/13/25 Rx tablet,extended release 24 hr clobetasol 0.05 % topical ointment 1 applic topical BEDTIME #30 grams 05/22/24 02/13/25 Rx rocklatan 0.00.005% drops See Rx Instructions EYE-RIGHT QPM 05/22/24 02/13/25 History DISABLED PARKING PERMIT #1 ea 08/24/24 02/13/25 Rx furosemide 20 mg tablet 20 mg PO DAILY #90 tabs 01/14/25 02/13/25 Rx Allergies Allergy/AdvReac Type Severity Reaction Status Date / Time sulfamethoxazole (From AdvReac Intermediate Verified 01/10/25 12:14 Bactrim) trimethoprim (From Bactrim) AdvReac Intermediate Verified 01/10/25 12:14 Exam Vital Signs (past 8 hours): Oxygen Delivery Method Nasal Cannula Oxygen Flow Rate 2 Objective Labs 02/13/25 07:00 02/13/25 07:00 Assessment & Plan Time-Based Coding :: [TOTAL MINUTES] spent with patient and on the chart (including review of chart, obtaining history, exam, reviewing outside data, placing orders, documenting exam and treatment plan, and counseling patient) on [DATE].
--- NOTE | 2025-02-16 15:38 | P.DN_ITS ---
Discharge Summary History of Illness Narrative: Chief complaint: Infarcted bowel with nausea vomiting abdominal pain History of present illness: A 84-year-old female presented to the ER with sudden onset abdominal pain with CT findings concerning for bowel ischemia. Patient taken to the operating room with operative finding of ischemic bowel that was resected and reanastomosed by surgery on-call. Patient arrived to the floor postoperatively. My initial encounter was at this point with the patient postoperatively. Patient was unable to give history as she was still sedated from anesthesia Hospital course: 1-2 hours postoperatively the patient had a cardiac arrest with no pulse there was to successful respirations of systemic circulation after which the patient lost her pulse again and . Cause of : Infarcted bowel Assessment and plan: Patient with infarcted bowel status post resection reanastomosis * Guarded prognosis as this was caused by arterial embolism with potential for multiple other visceral emboli Chronic atrial fibrillation * Likely source of cardiogenic emboli * Unable to anticoagulate due to fresh surgical resection and reanastomosis Time based billin minutes were involved in the management of the care of this patient as this patient was subsequently had cardiac arrest acute Code Blue with 2 respirations of circulation and then managed by the author Hospital Course Date of Admission: 02/13/25 09:36 Primary care provider: Shahab Vega, DO Objective Labs 02/13/25 07:00 02/13/25 07:00
== END 2025-02-13 20:05 | disposition expired | DRG 331 ==
LOC: ED 07:55 → AC 09:38 → ICU 02-14 04:39 → AC 02-14 09:04 → ICU 02-14 09:04
PROVIDERS: Family Medicine; Admitting Provider Surgery; Emergency Provider Emergency Medicine; Family Provider Family Medicine; PCP Family Medicine; Referring Provider Emergency Medicine; Visit Provider Surgery
PROC: 0DBL0ZZ Excision of Transverse Colon, Open Approach (ICD-10-PCS; CPT 49320; principal; 2025-02-13 09:45)
DX: K55.9 Vascular disorder of intestine, unspecified (principal); R09.02 Hypoxemia; Z95.810 Presence of automatic (implantable) cardiac defibrillator
CPT/HCPCS: 31500; 36415; 36600; 44140; 71045; 74177; 80053; 82805; 83605; 83690; 84145; 85025; 92950; 94002; 94640; 99222; 99284; 99285; G0378; J0165; J0282; J0295; J0666; J1100; J1171; J1650; J2405; J2704; J3010; J3490; J7030; J7050; J7613; Q9967